=== PATIENT | female | born 1970 | race Caucasian/White ===

== ENCOUNTER → 2017-08-18 17:45 | Outpatient (CLI) | payer OTHER, SELFPAY ==
[2017-08-25 12:36] LABS: HPV APTIMA, High Risk Negative (Negative)
== END ==
PROVIDERS: Visit Provider Obstetrics & Gynecology
DX: Z12.4 Encounter for screening for malignant neoplasm of cervix (principal)
CPT/HCPCS: 88175; G0145

== ENCOUNTER → 2020-10-14 10:53 | Outpatient (CLI) | payer OTHER, SELFPAY ==
--- NOTE | 2020-10-14 | CER_PTH ---
PATIENT: EMILIANO DAVIS LOC: [facility]#:[id number] AGE/SX: 54/F ROOM: RE10/14/[address]: Dr. Mitali Moulton MD : 1970 BED: DIS: SPEC #: [id number] RECD: 10/14/20 16:41 STATUS: SHERICE BAILEY #: [id number] MYA: 10/14/20 00:[address]: Mitali Moulton DEPT: SURGICAL PATHOLOGY RECD BY: Lizbeth Grant ENTERED: 10/15/20 07:12 SP TYPE: CERV OTHR DR: Dr. Dante De La O MD Tissues: Uterine cervix, NOS Procedures: Surgery Specimen Level IV HEADER OPERATION: Cervical polyp PRE-OP DIAGNOSIS: Cervical polyp TISSUE SUBMITTED: Cervical polyp MICROSCOPIC DIAGNOSIS Cervical polyp, biopsy: Benign endocervical polyp and mucous. SJ:zeenat 10/16/2020 MICROSCOPIC DESCRIPTION Slides are reviewed. GROSS DESCRIPTION Received is one container labeled with the patient's name and not further designated. The specimen consists of a polypoid piece of rivera soft tissue measuring 0.5 x 0.4 x 0.1 cm. Also present in the container are multiple fragments of mucoid tissue that in aggregate measure 1.5 x 1.5 x 0.2 cm. The entire specimen is submitted in one cassette. / SJ:zeenat 10/15/20 TC:5 CPT: 84729
[2020-10-14 10:50] VITALS: BMI 26.8
[2020-10-14 11:54] LABS: Estradiol 18.7 pg/mL; Follicle Stimulating Hormone 66.3 mIU/mL
[2020-10-19 10:25] LABS: HPV APTIMA, High Risk Negative (Negative)
== END ==
PROVIDERS: PCP Family Medicine; Referring Provider Obstetrics & Gynecology; Visit Provider Obstetrics & Gynecology
DX: Z12.4 Encounter for screening for malignant neoplasm of cervix (principal); N84.1 Polyp of cervix uteri; N95.0 Postmenopausal bleeding
CPT/HCPCS: 36415; 82670; 83001; 87624; 88175; 88305; G0145

== ENCOUNTER → 2020-10-28 11:12 | Outpatient (CLI) | payer OTHER, SELFPAY ==
[2020-10-14 10:50] VITALS: BMI 26.8
--- NOTE | 2020-10-28 11:17 | US_ITS ---
STUDY: ULTRASOUND OF THE FEMALE PELVIS - COMPLETE REASON FOR EXAM: Female, 50 years old. Postmenopausal bleeding. LMP: The patient is postmenopausal. Recent polyp removal. TECHNIQUE: Transabdominal and Transvaginal TECHNICAL QUALITY: Adequate. COMPARISON: None. FINDINGS: The uterus is anteverted and is in a midline position. The uterus measures 5.1 cm x 3.7 cm x 2.5 cm. Normal uterine cervix. The endometrium measures 3.2 mm in thickness, and is fluid distended. There is a 2 mm x 2 mm x 3 mm small rounded nodule within the endometrium suggestive of a small polyp. There is no demonstrated myometrial mass. I.U.D. - The patient does not have an I.U.D. The right ovary is visualized. The right ovary measures 2.4 cm x 1.2 cm x 0.8 cm. There is no right ovarian cyst or ovarian mass. There is no visualized right adnexal mass or complex lesion. There is normal arterial and normal venous vascularity. The left ovary is visualized. The left ovary measures 1.7 cm x 1.2 cm x 0.9 cm. There is no left ovarian cyst or ovarian mass. There is no visualized left adnexal mass or complex lesion. There is normal arterial and normal venous vascularity. There is no fluid in the cul-de-sac. The pre void volume of the bladder was 260 ml. US/Transvaginal Non- IMPRESSION: Fluid filled endometrium containing a 2 mm x 3 mm x 2 mm polyp. Electronically Signed: Owen Almeida MD at 12:37 EDT , Service support ,
--- NOTE | 2020-10-28 11:17 | US_ITS ---
STUDY: ULTRASOUND OF THE FEMALE PELVIS - COMPLETE REASON FOR EXAM: Female, 50 years old. Postmenopausal bleeding. LMP: The patient is postmenopausal. Recent polyp removal. TECHNIQUE: Transabdominal and Transvaginal TECHNICAL QUALITY: Adequate. COMPARISON: None. FINDINGS: The uterus is anteverted and is in a midline position. The uterus measures 5.1 cm x 3.7 cm x 2.5 cm. Normal uterine cervix. The endometrium measures 3.2 mm in thickness, and is fluid distended. There is a 2 mm x 2 mm x 3 mm small rounded nodule within the endometrium suggestive of a small polyp. There is no demonstrated myometrial mass. I.U.D. - The patient does not have an I.U.D. The right ovary is visualized. The right ovary measures 2.4 cm x 1.2 cm x 0.8 cm. There is no right ovarian cyst or ovarian mass. There is no visualized right adnexal mass or complex lesion. There is normal arterial and normal venous vascularity. The left ovary is visualized. The left ovary measures 1.7 cm x 1.2 cm x 0.9 cm. There is no left ovarian cyst or ovarian mass. There is no visualized left adnexal mass or complex lesion. There is normal arterial and normal venous vascularity. There is no fluid in the cul-de-sac. The pre void volume of the bladder was 260 ml. US/Pelvic (Non ) IMPRESSION: Fluid filled endometrium containing a 2 mm x 3 mm x 2 mm polyp. Electronically Signed: Owen Almeida MD at 12:37 EDT , Service support ,
== END ==
PROVIDERS: PCP Family Medicine; Referring Provider Obstetrics & Gynecology; Visit Provider Obstetrics & Gynecology
DX: N95.0 Postmenopausal bleeding (principal)
CPT/HCPCS: 76830; 76856

== ENCOUNTER 2020-11-11 09:00 | Day surgery (SDC) | payer OTHER, SELFPAY ==
[2020-10-14 10:50] VITALS: BMI 26.8
[2020-11-06 11:19] LABS: Hematocrit 38.7 % (37-47); Hemoglobin 12.5 g/dL (12.0-15.0); Mean Corp Hgb Conc 32.3 g/dL (32-36); Mean Corpuscular Hgb 30.7 pg (27.0-32.0); Mean Corpuscular Volume 95.1 fL (81-99); Platelet Count 214 K/mm3 (150-450); RBC Distribution Width CV 13.5 % (11.6-14.6); RBC Distribution Width SD 47.6 fl (35.1-43.9); Red Blood Count 4.07 M/mm3 (4.2-5.4); White Blood Count 3.3 K/mm3 (4.4-11.0)
[2020-11-06 11:38] VITALS: BMI 27.1
--- NOTE | 2020-11-11 09:02 | PCM.HP.BLA ---
History and Physical Date of Admission: 11/11/20 Intake Visit Reasons: EMB per SM Chief Complaint: EMB Director Of Customer Acquisition Required: No Is patient in pain?: No Allergies metoclopramide [From Reglan] Allergy (Mild, Verified 10/31/20 08:44) hyper codeine Allergy (Verified 10/31/20 08:44) Hives lisinopril Adverse Reaction (Unknown, Verified 10/31/20 08:44) Cough lovastatin Adverse Reaction (Unknown, Verified 10/31/20 08:44) Unknown Medications aspirin 81 mg PO DAILY 06/18/14 [History Confirmed 10/31/20] [id number]-[id number] 2 ea PO DAILY 06/18/14 [History Confirmed 10/31/20] multivitamin with folic acid 1 tab PO DAILY 06/18/14 [History Confirmed 10/31/20] omega-3 fatty acids-fish oil 3 ea PO DAILY 06/18/14 [History Confirmed 10/31/20] alprazolam 2 mg tablet 2 mg PO ONCE 08/18/17 [History Confirmed 10/31/20] atorvastatin 80 mg tablet 80 mg PO QDAY 08/18/17 [History Confirmed 10/31/20] calcium carbonate 500 mg calcium (1,250 mg) tablet 500 mg PO BID tab 08/18/17 [History Confirmed 10/31/20] losartan 50 mg tablet 50 mg PO QDAY 08/18/17 [History Confirmed 10/31/20] ferrous sulfate 325 mg (65 mg iron) tablet 325 mg PO DAILY 10/02/19 [History Confirmed 10/31/20] omeprazole 20 mg capsule,delayed release 20 mg PO DAILY 10/02/19 [History Confirmed 10/31/20] trazodone 100 mg tablet 50 mg PO QHS PRN #30 tab 10/14/20 [Rx Confirmed 10/31/20] venlafaxine 150 mg capsule,extended release 24 hr 150 mg PO DAILY #90 cap 10/14/20 [Rx Confirmed 10/31/20] Is last menstrual period known: No Post menopausal: No Patient : No : No PFSH Medical History Anxiety Atherosclerotic heart disease of jena coronary artery without angina pectoris Breast cancer Breast cancer, right Essential hypertension GERD (gastroesophageal reflux disease) Heart disease Hyperlipidemia Hypertension PMB (postmenopausal bleeding) Presence of stent in coronary artery (~09/21/13) Pure hypercholesterolemia Surgical History H/O lumpectomy History of endometrial ablation History of partial mastectomy of right breast Presence of coronary angioplasty implant and graft (~09/21/13) Family History Mother Heart disease Hypertension CVA (cerebral vascular accident) Parkinsons Seizures Father COPD (chronic obstructive pulmonary disease) Hypertension Social History Smoking Status: Never smoker alcohol intake: never substance use type: does not use caffeine: Yes what type of physical activity do you participate in: walking frequency: 5-6 times per week seatbelt use: always do you feel safe at home: Yes additional social history: - [employer] HPI EMB per Details: EMILIANO DAVIS is a 50 year old who presents for preop appointment for endometrial polyp, plan d and c hysteroscopy symphion. Female Reproductive History Menopausal Symptoms: No hot flashes, No night sweats, No difficulty concentrating and No change in libido Pregancy History 2 Elective abortions Hx Para 2 Spontaneous abortions Hx # Term Pregnancies Ectopic pregnancies Hx # Pregnancies Multiple births # of living children Past Pregnancies Del. Date Name GA/Weeks Outcome Route Bth Weight Gen Labor Lgth Anesthesia Del Locatn Provider FOB Unknown 1995 Anshu Unknown 1998 Dragan Mantilla Constitutional: Reports as per HPI; Denies fatigue, increased appetite, poor appetite, night sweats, weight gain or weight loss ENT ENT: Reports system reviewed and no additional complaints, except as documented Cardio Card: Denies chest pain Resp Resp: Denies cough or dyspnea GI GI: Reports as per HPI; Denies abdominal pain, bloating, constipation, nausea or vomiting : Reports as per HPI and other; Denies difficulty voiding, dysuria, hematuria, hot flashes, nipple discharge, pelvic pain, prolapse symptoms, urinary frequency, urinary incontinence, urinary urgency, vaginal discharge, vaginal dryness, vaginal odor or vaginal pruritus Musc Musc: Denies arthralgias, back pain or muscle weakness Skin Skin/Breast: Denies changing lesions, breast mass, breast pain, breast skin changes or nipple discharge Neuro Neuro: Reports system reviewed and no additional complaints, except as documented Psych Psych: Denies anxiety, change in libido, depression or difficulty concentrating Endo Endo: Denies cold intolerance, excessive sweating, heat intolerance or polydipsia Amilcar/Lymph Hematologic/Lymphatic: Denies easy bleeding, Denies easy bruising and Denies lymphadenopathy Exam Const General: cooperative, healthy appearing, comfortable, no acute distress and well developed Orientation: alert [facility] Head: normal to inspection and normocephalic Ears: hearing grossly normal bilaterally and external ears normal Nose: external nose normal and nares normal Face and sinus: normal facial exam Neck Neck: normal visual inspection and no lymphadenopathy Thyroid: thyroid normal Chest Chest palpation & inspection: normal inspection of the chest Resp Effort & Inspection: normal respiratory effort Auscultation: clear to auscultation bilaterally Cardio Rate: regular rate Rhythm: regular rhythm Heart Sounds: S1 normal and S2 normal GI Inspection: normal to inspection and non-distended Palpation: soft and no hepatosplenomegaly General: bladder normal to palpation External Female Exam: normal external appearance and normal appearance of the urethra Urethra: normal appearance of the urethra, normal palpation and no discharge Speculum Exam - Vagina: normal appearance of the vagina and normal vaginal discharge Speculum Exam - Cervix: normal appearance of the cervix and nontender Bimanual Exam- Vagina & Uterus: normal bimanual exam, uterine size normal, bladder normal to palpation, uterine shape normal, No tender, uterine mobility normal, consistency normal, normal palpation and non-tender Bimanual Exam- Adnexa, other: normal adnexae, adnexae mobile, no masses and normal Pelvic Support: normal Musc Other: gross motor intact no deficits, full bilateral strength Skin General: no rashes or lesions noted Neuro General: patient alert, patient awake, moves all extremities and no focal motor deficits Motor: muscle tone normal throughout Extrem General: normal to inspection and no pedal edema Psych Appearance: grossly normal Mental Status: mental status grossly normal Affect: normal affect Speech and Movement: speech and movement normal Office Procedures Endometrial Biopsy Endometrial Biopsy Details: Cervix prepped with betadine and pipelle inserted into uterus without complication. Specimen obtained and sent to lab for analysis. All instruments removed from vagina without complications. Excellent hemostasis noted. Coding Level of Care Code No Charge Diagnoses Postmenopausal bleeding N95.0 Assessment and Plan Assessment and Plan (1) Postmenopausal bleeding: Status: Acute Comment: endometrial polyp, plan d and c hysteroscopy symphion resection Plan - Dr. Mitali Moulton MD: After discussing the patient's diagnosis and treatment plan options, patient wishes to proceed with surgical management. I have discussed with the patient the risks, benefits, and alternatives of the procedure which include but are not limited to risks of anesthesia, bleeding, infection, possible damage to bowel, bladder, or surrounding vasculature which could lead to additional surgery to evaluate any complications. Patient agrees to procedure and wishes to proceed. ACOG/uptodate references given for additional information regarding procedure. UPDATE- I have seen the patient and performed any clinically relevant updates to the history and physical exam. Mitali Moulton MD
[2020-11-11 09:43] VITALS: BP 120/67; PULSE 65; RESP 16; TEMP 36.5; O2SAT 100; BMI 27.8
[2020-11-11] MEDS: Lactated Ringers 1,000 ML 100 ML IV (09:48)
--- NOTE | 2020-11-11 10:50 | EMB_PTH ---
PATIENT: EMILIANO DAVIS [place] [facility] [id number] AGE/SX: 50/F ROOM: RE11/11/[address]: Dr. Mitali Moulton MD : 1970 BED: DIS: 11/11/2020 SPEC #: [id number] RECD: 11/11/20 14:04 STATUS: SHERICE BAILEY #: [id number] MYA: 11/11/20 10:[address]: Mitali Moulton DEPT: SURGICAL PATHOLOGY RECD BY: Lizbeth Grant ENTERED: 11/12/20 09:32 SP TYPE: ENDOM BX/C LILLIAN DR: Dr. Dante De La O MD Tissues: Endometrium, NOS Procedures: Surgery Specimen Level IV HEADER OPERATION: Hysteroscopy, D & C Symphion PRE-OP DIAGNOSIS: Postmenopausal bleeding TISSUE SUBMITTED: Endometrial curettings MICROSCOPIC DIAGNOSIS Endometrium, curettings: Scant benign glandular epithelial cells and rare benign squamous epithelium. Fragment of benign fibrous tissue. See comment. AM:zeenat 11/13/2020 COMMENT The specimen primarily consists of blood and proteinaceous material. Clinical correlation is suggested. MICROSCOPIC DESCRIPTION Slides are reviewed. GROSS DESCRIPTION Received in fixative is one container labeled with the patient's name and designated endometrial curettings. The specimen consists of multiple fragments of hemorrhagic soft tissue mixed with mucoid tissue that in aggregate measure 2.5 x 1.5 x 0.2 cm. The specimen is totally submitted in one cassette. / SJ:zeenat 11/12/20 TC:5 CPT: 83060
--- NOTE | 2020-11-11 11:20 | OP.PCM_ITS ---
Problems Associated Problem List Diagnoses (1) Postmenopausal bleeding: Report of Operation Date of Procedure: 11/11/20 Pre-Operative Diagnosis: see problem list Post-Operative Diagnosis: same Surgery/Procedure Performed:: D&C hysteroscopy using symphion customer success associate: None Type of Anesthesia: Local MAC Special Medications: none Specimen's removed: EMC Drains: none Estimated Blood Loss (mL): 25 Fluids Replaced: crystalloid Description of Procedure: Patient was prepped and draped in a normal sterile fashion under MAC anesthesia. A weighted speculum was placed in the vagina and the anterior lip of the cervix was grasped with a single-tooth tenaculum. A paracervical block was placed with 1% lidocaine. Cervical stenosis was encountered and it was difficult to ascertain a clear tract. Ultrasound was used to perform ultrasound-guided entry which confirmed being inside the lining of the uterus. Cervix was progressively dilated to allow passage of a 5 mm hysteroscope. . Uterine sounded to 5 cm. Uterine lining was noted to be significantly atrophic and a very narrow cavity. Sharp curettage was performed all instruments were removed from the vagina and excellent hemostasis was noted. Patient was awoken and taken to recovery in stable condition. Grafts/Implants Used: none Complications none Admit VTE Documentation VTE Present on Admission: No VTE Mechan Device Prophylaxis: SCD's Multi Select Codes Urinary/Genital Urinary/Genital CPT Codes: 01281 [place] [address] Hysteroscopy, diagnostic
--- NOTE | 2020-11-11 11:20 | EX.PCM.DISCH ---
Discharge Instructions Procedure D&C Diet Discharge Diet: No restrictions Activity Discharge Activity: Return to Normal Activity, May Shower and May Take a Tub Bath (after 1 week) May resume sexual activity in: 1-2 weeks Weight Bearing Status: Weight bearing as tolerated Lifting Restrictions: none Dressing / Incision Call your doctor if you observe: Fever of 101 or Higher, Using more than 1 pad per hour, Shortness of breath and Uncontrolled pain Follow Up Care Please Follow Up With: Mitali Moulton MD When: Call [phone] to schedule appointment. Test Results: Test results from this visit will be discussed in further detail at your follow-up appointment, if applicable. Discharge Plan Admission Primary Reason for Your Visit: hysteroscopy Attending Provider: Mitali Moulton Primary Care Provider: Dante De La O Discharge Orders/Prescriptions Prescriptions: No Action atorvastatin [Lipitor] 80 mg tablet 80 mg PO QDAY RF: 0 losartan 50 mg tablet 50 mg PO QDAY RF: 0 calcium carbonate [Calcium 500] 500 mg calcium (1,250 mg) tablet 500 mg PO BID RF: 0 alprazolam [Xanax] 2 mg tablet 2 mg PO DAILY PRN PRN (Reason: Anxiety) RF: 0 omeprazole 20 mg capsule,delayed release(DR/EC) 20 mg PO QHS RF: 0 ferrous sulfate 325 mg (65 mg iron) tablet 325 mg PO DAILY RF: 0 glucosamine-chondroitin [Osteo Bi-Flex] 250-200 mg tablet 2 tab PO DAILY RF: 0 nitroglycerin 0.4 mg tablet, sublingual 0.4 mg sublingual Q5-15M PRN (Reason: Chest Pain) RF: 0 aspirin 81 MG tablet,chewable 81 mg PO DAILY RF: 0 omega-3 fatty acids-fish oil 1 EACH capsule 3 ea PO DAILY RF: 0 multivitamin with folic acid 1 TABLET tablet 1 tab PO DAILY RF: 0 venlafaxine 150 mg capsule,extended release 24hr 150 mg PO DAILY RF: 0 trazodone 100 mg tablet 50 mg PO QHS PRN PRN (Reason: insomnia) RF: 0 Referrals / Follow Up: Dante De La O MD [Primary Care Provider] - Disposition Disposition (needs filled in before D/C Order can be placed): Home, Self Care
[2020-11-11] MEDS: Lidocaine 1% (20 ml mdv) 20 ML Vial (12:11)
[2020-11-11 12:54] VITALS: BP 120/67; BP 153/81; PULSE 73; RESP 16; TEMP 35.7; O2SAT 100
[2020-11-11 12:55] VITALS: BP 120/67; BP 153/81; PULSE 70; RESP 16; O2SAT 100
[2020-11-11 13:05] VITALS: BP 120/67; BP 142/82; PULSE 64; RESP 16; TEMP 35.7; O2SAT 100
[2020-11-11 13:44] VITALS: BP 120/67; BP 137/76; PULSE 70; RESP 16; TEMP 36.4; O2SAT 100
== END 2020-11-11 13:46 ==
LOC: SDC 09:01 → AC 09:01
PROVIDERS: PCP Family Medicine; Referring Provider Obstetrics & Gynecology; Visit Provider Obstetrics & Gynecology
PROC: 0UB98ZZ Excision of Uterus, Via Natural or Artificial Opening Endoscopic (ICD-10-PCS; CPT 58558; principal; 2020-11-11 10:35)
DX: N84.0 Polyp of corpus uteri (principal); N95.0 Postmenopausal bleeding; N88.2 Stricture and stenosis of cervix uteri; I25.10 Atherosclerotic heart disease of native coronary artery without angina pectoris; I10 Essential (primary) hypertension; E78.5 Hyperlipidemia, unspecified; K21.9 Gastro-esophageal reflux disease without esophagitis; F32.9 Major depressive disorder, single episode, unspecified; Z79.82 Long term (current) use of aspirin; Z79.899 Other long term (current) drug therapy; Z85.3 Personal history of malignant neoplasm of breast; Z92.3 Personal history of irradiation; Z95.5 Presence of coronary angioplasty implant and graft
CPT/HCPCS: 00952; 58558; 36415; 85027; 86850; 86900; 86901; 88305; J7120; J2405

== ENCOUNTER → 2020-11-20 06:42 | Outpatient (CLI) | payer OTHER, SELFPAY ==
[2020-11-11 09:43] VITALS: BMI 27.8
--- NOTE | 2020-11-20 06:44 | ECHOD_ITS ---
Reason For Study: CAD/ASHD Procedure This was a 2D Doppler, Color Flow transthoracic echocardiogram. Myocardial strain analysis was performed in this exam to aid in the assessment of cardiac function. The exam was of adequate technical quality. Exam performed in department. Left Ventricle Normal LV size. Left ventricular systolic function is normal. The estimated ejection fraction is 60 %. The global longitudinal strain = -20 % (normal). No evidence for diastolic dysfunction. No regional wall motion abnormalities noted. Right Ventricle Normal RV size. Normal systolic function. Atria Normal left atrium. Normal right atrium. No doppler evidence for ASD. Mitral Valve There is no mitral annular calcification. Normal mitral valve. Mild mitral valve prolapse. Trivial mitral valve insufficiency. Tricuspid Valve Normal tricuspid valve. Trivial tricuspid valve insufficiency. Unable to estimate RV systolic pressure due to insufficient tricuspid regurgitant envelope. Aortic Valve Trisinus/trileaflet aortic valve. Mild focal aortic valve calcification. Pulmonic Valve The pulmonic valve is not well visualized. Great Vessels Normal sized aortic root. Pericardium/Pleural No pericardial effusion. MMode/2D Measurements & Calculations LVIDd: 4.9 cm IVSd: 0.79 cm Ao root diam: 3.0 cm LVIDs: 3.3 cm LVPWd: 0.82 cm RVDd: 2.9 cm FS: 31.3 % LAV(MOD-bp): 36.8 ml LVAd ap4: 30.0 cm2 SV(MOD-sp4): 54.4 ml LAV(MOD-bp) Indexed: 19.1 ml/m2 LVLd ap4: 8.1 cm LAV(MOD-sp2): 36.1 ml EDV(MOD-sp4): 91.0 ml LAV(MOD-sp4): 33.1 ml EDV(sp4-el): 93.8 ml LVAs ap4: 16.3 cm2 LVLs ap4: 6.2 cm ESV(MOD-sp4): 36.6 ml ESV(sp4-el): 36.0 ml EF(MOD-sp4): 59.7 % EF(sp4-el): 61.6 % SV(sp4-el): 57.8 ml LA A4 area: 14.7 cm2 LA dimension(2D): 3.1 cm RA A4 area: 11.9 cm2 Time Measurements MV dec time: 0.24 sec Doppler Measurements & Calculations MV E max daren: 81.1 cm/sec Lat Peak E' Daren: 13.9 cm/sec Med Peak E' Daren: 12.4 cm/sec MV A max daren: 81.1 cm/sec E/E' lat: 5.8 E/E' med: 6.5 MV E/A: 1.0 Ao V2 max: 128.7 cm/sec LV V1 max: 77.6 cm/sec PA V2 max: 115.8 cm/sec Ao max P.6 mmHg LV V1 max P.4 mmHg ECHO/Echo Complete Interpretation Summary Left ventricular systolic function is normal. The estimated ejection fraction is 60 %. The global longitudinal strain = -20 % (normal). Mild mitral valve prolapse. Trivial mitral valve insufficiency. Trivial tricuspid valve insufficiency. Mild focal aortic valve calcification. Unable to estimate RV systolic pressure due to insufficient tricuspid regurgita nt envelope. No evidence for diastolic dysfunction. Ordering Physician: Krzysztof Henley Referring Physician: HEMANT LLOYD Performed By: Sobeida Whitehead RDCS
--- NOTE | 2020-11-20 08:55 | STRESSREP ---
Stress Test Report Date: 11-20-2020 Procedure: Exercise tolerance test/imaging study Indications: Chest pain; CAD; status post PTCA/stent Consent: Per the patient Procedure: The patient exercised on a Checo protocol for 10 minutes completing Stage III and 1 minute of Stage IV achieving a peak heart rate of 150 bpm (89% predicted maximal heart rate) with a peak blood pressure 150/76 mmHg and a peak MET capacity of 11 METs. The baseline ECG demonstrated normal sinus rhythm. The peak exercise ECG demonstrated somatic/motion artifact with approximately 1 to [address] segment depression in leads II, III, aVF, and V3 through V6 with gradual resolution towards baseline in recovery. There were occasional PVCs during exercise and recovery and occasional ventricular couplets during exercise. The functional capacity was considered good. There was notation of mild to moderate chest discomfort/tightness during exercise with spontaneous resolution in recovery. The examination was discontinued secondary to chest discomfort. Impression: 1. Technically adequate (percent predicted maximal heart rate greater than 85%) exercise tolerance test 2. Peak exercise ECG with somatic/motion artifact with approximately 1 to [address] segment depression in leads II, III, aVF, and V3 through V6 with gradual resolution towards baseline in recovery 3. There were occasional PVCs during exercise and recovery and occasional ventricular couplets during exercise 4. Nuclear images pending Myocardial perfusion imaging study: Technique: The patient was injected with 12.0 mCi of technetium 99m Cardiolite and subsequently rest SPECT Cardiolite nuclear imaging was obtained in the horizontal long, vertical long, and short axis views. The patient exercised on a Checo protocol for 10 minutes completing Stage III and 1 minute of Stage IV achieving a peak heart rate of 150 bpm (89% predicted maximal heart rate) with a peak blood pressure 150/76 mmHg and a peak MET capacity of 11 METs. The patient was injected with 36.0 mCi of technetium 99m Cardiolite and subsequently stress SPECT Cardiolite nuclear imaging was obtained in the horizontal long, vertical long, and short axis views. A gated Cardiolite study at peak stress was obtained. Interpretation: Rest and stress SPECT Cardiolite nuclear imaging status post realignment, normalization, and attenuation correction, demonstrates the appearance of relative uniform tracer uptake and myocardial perfusion appearing within normal limits. There is end systolic thickening and brightening. The gated Cardiolite study demonstrates myocardial thickening and inward wall motion. The reported LVEF is 69%. Impression: 1. Rest and stress SPECT Cardiolite nuclear imaging demonstrate relative uniform tracer uptake and myocardial perfusion appearing within normal limits. 2. The gated Cardiolite study reports an LVEF of 69%. This note was generated with [email or web address] software. It may contain incorrect words, spelling, and punctuation that were not noted in checking the note before signing.
== END ==
PROVIDERS: PCP Family Medicine; Referring Provider Internal Medicine Cardiovascular Disease; Visit Provider Internal Medicine Cardiovascular Disease
DX: R07.89 Other chest pain (principal); I25.10 Atherosclerotic heart disease of native coronary artery without angina pectoris; I10 Essential (primary) hypertension; E78.00 Pure hypercholesterolemia, unspecified; Z95.5 Presence of coronary angioplasty implant and graft
CPT/HCPCS: 78452; 93017; 93306; A9500; A4216

== ENCOUNTER 2021-05-19 08:26 | Day surgery (SDC) | payer OTHER, SELFPAY ==
--- NOTE | 2021-05-13 13:56 | RAD_ITS ---
STUDY: X-RAY CHEST REASON FOR EXAM: Female, 50 years old. Technologist Notes PRE HEART CATH. CHRONIC CHEST TIGHTNESS, HX OF STENT X7 YRS AND BREAST CA X 2 YRS Cardiac Catheterization TECHNIQUE: XR Chest 2 Views COMPARISON: None FINDINGS: There is no demonstrated pleural abnormality. Normal size heart. Normal mediastinum and leny. Normal visualized pulmonary arteries. Normal visualized aortic arch and descending thoracic aorta. Normal visualized thoracic spine. Normal visualized ribs, clavicles, and shoulders. There is no demonstrated abnormality of the visualized soft tissue structures of the upper abdomen. RAD/Chest PA and Lateral IMPRESSION: There are no acute findings. Electronically Signed: Humberto Heath MD at 19:46 EST , Service support ,
[2021-05-13 14:11] LABS: Absolute Lymphocyte Count 1.23 X10^3/uL (0.83-4.51); Absolute Neutrophil Count 2.4 X10^3/uL (2.0-7.7); Basophil# 0.04 X10^3/uL; Basophil% 0.9 % (0-1); Eosinophil# 0.24 X10^3/uL; Eosinophils% 5.6 % (0-5); Hematocrit 37.6 % (37-47); Hemoglobin 12.7 g/dL (12.0-15.0); Lymphocyte # 1.23 X10^3/ul (0.83-4.51); Lymphocyte % 28.5 % (19-41); Mean Corp Hgb Conc 33.8 g/dL (32-36); Mean Corpuscular Hgb 31.6 pg (27.0-32.0); Mean Corpuscular Volume 93.5 fL (81-99); Mean Platelet Vol. 10.1 fl (6.2-12.0); Monocyte% 9.3 % (0-10); NRBC Flagged by Analyzer 0 % (0-5); Neutrophil # 2.41 X10^3/uL (2.7-7.7); Neutrophil % 55.7 % (47-70); Platelet Count 209 K/mm3 (150-450); RBC Distribution Width CV 13.1 % (11.6-14.6); RBC Distribution Width SD 45.1 fl (35.1-43.9); Red Blood Count 4.02 M/mm3 (4.2-5.4); White Blood Count 4.3 K/mm3 (4.4-11.0)
[2021-05-13 14:19] LABS: Partial Thromboplast Time 35.6 Seconds (24.1-36.2)
[2021-05-13 14:23] LABS: Prothrombin Time (Protime)PT. 12.5 SECONDS (11.7-14.9)
[2021-05-13 14:40] LABS: Anion Gap 3 (5-15); BUN 15 mg/dL (7-18); BUN/Creat Ratio 16.5 RATIO (10-20); Calcium,Total 8.9 mg/dL (8.5-10.1); Chloride 106 mmol/L (98-107); Creatinine, Serum 0.91 mg/dL (0.55-1.02); EST Glomerular Filtration Rate 69 mL/min (>60); Est Glom Filt Rate - Afr Amer 84 mL/min (>60); Glucose 96 mg/dL (74-106); Potassium 3.9 mmol/L (3.5-5.1); Sodium Level 139 mmol/L (136-145)
[2021-05-18 07:16] VITALS: BMI 28.3
--- NOTE | 2021-05-18 18:43 | HP.PCM_ITS ---
History and Physical Date of Admission: 05/19/21 [facility] [id number] [place], [place] [phone] OFFICE VISITDate of Service: 05/13/21 MR#:[id number]: EMILIANO DAVIS #:[id number]:[id number] Provider: LUCINA Mills/Sex: 50/F [facility] HPI HPI History of Present Illness Surgical H&P: Yes Details: This is a 50-year-old white female who presents today for outpatient cardiovascular consultation with a history of underlying CAD status post LCx PTCA/stent (2013), superimposed upon hyperlipidemia, hypertension, and a history of right breast carcinoma. The patient underwent evaluation at [facility] in [place], [place] in 2013 with a diagnostic cardiac catheterization. At that time her left ventricle was thought to be normal with an LVEF of 55 to 60%, the left main had no evidence of disease, the LAD had minor luminal irregularities, the intermediate ramus had no evidence of disease, the LCx had a 95% stenosis with an associated thrombus for which she underwent PTCA/stent with a 3 mm x 16 mm Promus Premier drug-eluting stent, and the RCA had a 40% stenosis. She states she is has been having burning and tightness in the middle of her shoulder blades and chest-similar to what she had prior to her stent in 2013. She states that she will also walk up the stairs, goes to sit down and she breaks out in a sweat and is nauseated. This has been ongoing for the last 2-3 months. She states that she has not used nitroglycerin for the pain due to the severe headache she had the first time she took it. She states that she does get slightly winded with activity. She was unable to shovel snow a few days ago d/t chest pain and SOB. She states that she does have an occasional lightheadedness- she attributes this to her anemia. The Imdur did help somewhat since she started it but she still does have CP. She states she has been taking an Iron pill and it has gotten better. She denies dizziness, syncopal or near syncopal episodes, and headaches. Intake Vital Signs 05/13/21 14:15 Height 5 ft 7 in Weight: 181 lb BMI 28.3 BP 121/70 H Blood Pressure Location Lt brachial Position Sitting Respiration 18 Pulse 69 Pulse Source Monitor Pulse Oximetry (%) 99 Intake Visit Reasons: 6 M FU Super[employer] Required: No Is patient in pain?: No Allergies metoclopramide [From Reglan] Allergy (Mild, Verified 05/13/21 14:15) hyper codeine Allergy (Verified 05/13/21 14:15) Hives lisinopril Adverse Reaction (Unknown, Verified 05/13/21 14:15) Cough lovastatin Adverse Reaction (Unknown, Verified 05/13/21 14:15) Unknown Medications aspirin 81 mg PO DAILY 06/18/14 [History Confirmed 05/13/21] multivitamin with folic acid 1 tab PO DAILY 06/18/14 [History Confirmed 05/13/21] omega-3 fatty acids-fish oil 3 ea PO DAILY 06/18/14 [History Confirmed 05/13/21] alprazolam 2 mg tablet 2 mg PO DAILY PRN PRN 08/18/17 [History Confirmed 05/13/21] atorvastatin 80 mg tablet 80 mg PO QDAY 08/18/17 [History Confirmed 05/13/21] calcium carbonate 500 mg calcium (1,250 mg) tablet 500 mg PO BID tab 08/18/17 [History Confirmed 05/13/21] losartan 50 mg tablet 50 mg PO QDAY 08/18/17 [History Confirmed 05/13/21] ferrous sulfate 325 mg (65 mg iron) tablet 325 mg PO DAILY 10/02/19 [History Confirmed 05/13/21] trazodone 50 mg PO QHS PRN PRN 11/04/20 [History Confirmed 05/13/21] glucosamine-chondroitin 250 mg-200 mg tablet 2 tab PO DAILY tab 11/06/20 [History Confirmed 05/13/21] nitroglycerin 0.4 mg sublingual tablet 0.4 mg SUBLINGUAL Q5-15M PRN 11/06/20 [History Confirmed 05/13/21] clopidogrel 75 mg tablet 75 mg PO DAILY #7 tab 04/16/21 [Rx Confirmed 05/13/21] isosorbide mononitrate 30 mg tablet,extended release 24 hr 30 mg PO DAILY #30 tab 04/16/21 [Rx Confirmed 05/13/21] metoprolol tartrate 25 mg tablet 25 mg PO BID #60 tab 04/16/21 [Rx Confirmed 05/13/21] omeprazole magnesium 20 mg tablet,delayed release 20 mg PO DAILY 04/16/21 [History Confirmed 05/13/21] venlafaxine 75 mg capsule,extended release 24 hr 37.5 mg PO DAILY cap 04/16/21 [History Confirmed 05/13/21] PFSH Medical History Anemia Anxiety Atherosclerotic heart disease of [place] coronary artery without angina pectoris Breast cancer Breast cancer, right Cardiology follow-up encounter Easy bruising Essential hypertension Excessive bleeding Gastric reflux GERD (gastroesophageal reflux disease) Heart disease High cholesterol History of angina History of trigger finger Hyperlipidemia Hypertension Loose, teeth Non-smoker PMB (postmenopausal bleeding) Post-menopausal Presence of stent in coronary artery (~09/21/13) Pure hypercholesterolemia Wears contact lenses Surgical History H/O dilation and curettage H/O lumpectomy History of endometrial ablation History of partial mastectomy of right breast Presence of coronary angioplasty implant and graft (~09/21/13) Family History Mother Heart disease Hypertension CVA (cerebral vascular accident) Parkinsons Seizures Father COPD (chronic obstructive pulmonary disease) Hypertension Social History Smoking Status: Never smoker alcohol intake: never substance use type: does not use caffeine: Yes what type of physical activity do you participate in: walking frequency: 5-6 times per week seatbelt use: always do you feel safe at home: Yes additional social history: - [employer] ROS Const Const: Negative for fatigue, weakness, fever(s), headache(s), chills, frequent falls, weight gain or weight loss Eyes Eyes: Negative for blind spots, loss of peripheral vision, transient loss of vision, blurry vision, change in vision, double vision, floaters or tunnel vision ENT ENT: Negative for headache(s), dizziness, Nosebleed/epistaxis, balance problems or neck pain Cardio Chest Pain: Yes (tightness and burning) Frequency: other Character: tightness and other (burning, sweating, and nausea) Onset: exercise Location: mid sternal and other (Between Shouler blades) Exacerbation: exercise Relieving: rest Recurrence: exercise Palpitations: No Edema: None Muscle aches with walking: None Resp Respiratory: Positive for SOB with activity (slightly winded); Negative for SOB at rest or SOB orthopnea\SOB lying down GI GI: Negative nausea, vomiting, heartburn, bloating, vomiting blood/hematemesis, bright, red blood in stools or black,tarry stools Musc Musc: Negative for muscle aches/ myalgia, muscle weakness, joint pain or balance problems Neuro Neuro: Positive for lightheadedness (better with iron supplement); Negative for dizziness, near syncope, syncope, orthostatic symptoms, frequent falls, headache(s), weakness, blurry vision or double vision Amilcar Hematologic/Lymphatic: Negative for easy bleeding or easy bruising Endo Endo: Negative for fatigue Cardiology Exam Const Appearance: cooperative and no acute distress Orientation: alert and oriented x3 Head Head: normal to inspection Ears: hearing grossly normal bilaterally Nose: external nose normal Face and Sinus: face symmetric Eyes General: appearance normal, both eyes and all related structures Eyelids: eyelids normal Conjunctivae: conjunctivae normal Pupils: PERRL and pupil size EOM: EOM intact bilaterally Neck Neck: normal visual inspection Carotids: Negative bruit Chest Chest inspection: normal inspection of the chest and normal respiratory effort Auscultation: Bilateral: Clear to Auscultation Cardio Palpation: normal PMI Rate: regular rate Rhythm: regular rhythm Heart sounds: S1 normal and S2 normal; Negative rub, gallop or murmur GI GI: normal to inspection and soft; Negative no hepatosplenomegaly Neuro General: patient alert, patient oriented x3 and CN's II-XI intact bilaterally Skin Skin: no rashes or lesions noted Extremities Pulses: Normal: Right Posterior Tibial Pulse, Left Posterior Tibial Pulse, Right Radial Pulse and Left Radial Pulse Lower Extremity Edema: None: Bilateral Psych Psychological: normal affect Supplemental Info Supplemental Information Echocardiogram 11/20/2020: Interpretation Summary Left ventricular systolic function is normal. The estimated ejection fraction is 60 %. The global longitudinal strain = -20 % (normal). Mild mitral valve prolapse. Trivial mitral valve insufficiency. Trivial tricuspid valve insufficiency. Mild focal aortic valve calcification. Unable to estimate RV systolic pressure due to insufficient tricuspid regurgitant envelope. No evidence for diastolic dysfunction. Stress test 11/20/2020: Procedure: Exercise tolerance test/imaging study Indications: Chest pain; CAD; status post PTCA/stent Consent: Per the patient Procedure: The patient exercised on a Checo protocol for 10 minutes completing Stage III and 1 minute of Stage IV achieving a peak heart rate of 150 bpm (89% predicted maximal heart rate) with a peak blood pressure 150/76 mmHg and a peak MET capacity of 11 METs. The baseline ECG demonstrated normal sinus rhythm. The peak exercise ECG demonstrated somatic/motion artifact with approximately 1 to [address] segment depression in leads II, III, aVF, and V3 through V6 with gradual resolution towards baseline in recovery. There were occasional PVCs during exercise and recovery and occasional ventricular couplets during exercise. The functional capacity was considered good. There was notation of mild to moderate chest discomfort/tightness during exercise with spontaneous resolution in recovery. The examination was discontinued secondary to chest discomfort. Impression: 1. Technically adequate (percent predicted maximal heart rate greater than 85%) exercise tolerance test 2. Peak exercise ECG with somatic/motion artifact with approximately 1 to [address] segment depression in leads II, III, aVF, and V3 through V6 with gradual resolution towards baseline in recovery 3. There were occasional PVCs during exercise and recovery and occasional ventricular couplets during exercise 4. Nuclear images pending Myocardial perfusion imaging study: Technique: The patient was injected with 12.0 mCi of technetium 99m Cardiolite and subsequently rest SPECT Cardiolite nuclear imaging was obtained in the horizontal long, vertical long, and short axis views. The patient exercised on a Checo protocol for 10 minutes completing Stage III and 1 minute of Stage IV achieving a peak heart rate of 150 bpm (89% predicted maximal heart rate) with a peak blood pressure 150/76 mmHg and a peak MET capacity of 11 METs. The patient was injected with 36.0 mCi of technetium 99m Cardiolite and subsequently stress SPECT Cardiolite nuclear imaging was obtained in the horizontal long, vertical long, and short axis views. A gated Cardiolite study at peak stress was obtained. Interpretation: Rest and stress SPECT Cardiolite nuclear imaging status post realignment, normalization, and attenuation correction, demonstrates the appearance of relative uniform tracer uptake and myocardial perfusion appearing within normal limits. There is end systolic thickening and brightening. The gated Cardiolite study demonstrates myocardial thickening and inward wall motion. The reported LVEF is 69%. Impression: 1. Rest and stress SPECT Cardiolite nuclear imaging demonstrate relative uniform tracer uptake and myocardial perfusion appearing within normal limits. 2. The gated Cardiolite study reports an LVEF of 69%. Labs: No Data to Display Diagnostics: Electrocardiogram Echocardiogram Stress Test NM Stress Test Chest X-Ray Pulmonary: No Data to Display Assessment and Plan Assessment and Plan (1) Chest tightness: Status: Acute Orders: Orders: 12 Lead EKG performed by [facility] 05/13/21 Arnold VERDUGO PA: Patient is still having chest discomfort that is concerning for angina. Because she recently had a stress test that was negative and she has had ongoing chest discomfort would like to proceed with a diagnostic heart catheterization to further evaluate. This is scheduled for next week. (2) Presence of stent in coronary artery: Status: Acute Comment: PCI/ELLEN to LCX 09/21/13 @ [facility] Orders: Orders: 12 Lead EKG performed by [facility] 05/13/21 LUCINA Moreno: With patient's history of coronary artery disease her symptoms are concerning for angina as they are similar to what she had prior to her previous stenting. We will proceed with a diagnostic heart catheterization. (3) Essential Hypertension Status: Acute LUCINA Moreno: Blood pressure is well controlled on current medications, we do not recommend any changes at this time. (4) Pure hypercholesterolemia: Status: Acute LUCINA Moreno: Pt will continue with current meds. Plan Details Additional Comments: Thank you for allowing me to participate in the care of your patient. Please don't hesitate to call if any issues arise. This note was generated using a voice recognition system and there may be incorrect words, spelling, or punctuation that were not noted when reviewing the office note prior to saving. Follow Up: 3 Months (MMM/KR) COVID (Procedure Consent) Procedure Criteria Procedure Criteria: Yes Elective The surgeon/proceduralist and patient have discussed in detail the risk of exposure to and/or potential harm posed by the COVID-19 virus with having a surgery/procedure at this time versus the risk of delaying the surgery/procedure. It is not possible to know either the risk of delaying the surgery or procedure or chance of getting an infection with perfect accuracy, but a joint decision was made between the patient and the surgeon/proceduralist to proceed at this time with the scheduled surgery/procedure as indicated on the consent form. Coding Level of Care Code Off vis,est,level 3 Diagnoses Chest tightness R07.89 Presence of stent in coronary artery Z95.5 Essential hypertension I10 Pure hypercholesterolemia E78.00 Coding Level of Care Code Off vis,est,level 3 Diagnoses Chest tightness R07.89 Presence of stent in coronary artery Z95.5 Essential hypertension I10 Pure hypercholesterolemia E78.00 05/14/21 0855<Electronically signed by Radha VERDUGO>Date Radha VERDUGO Cosigner Signature:Date (if applicable) CC: Dr. Dante De La O MD ~ Assessment & Plan Addt'l Comments I have re-examined the patient. There are no clinical changes since date of exam
[2021-05-19 08:47] LABS: Internal QC Validated? YES +Cl - CLEAR BKGD; Pregnancy, Urine Negative Negative
--- NOTE | 2021-05-19 12:39 | CL.D_ITS ---
Patient Name: EMILIANO DAVIS Study Date: 05/19/2021 Performing: Krzysztof Henley MD Ht: 66.92 inches 170 cm : 1970 Wt: 180.78 lbs 82 kg Age: 50 Gender: female BSA: 1.94 PROCEDURE(S) PERFORMED DC01-([id number])LHC/COR/LV CLINICAL PROFILE AND INDICATIONS Indications: Worsening Angina, Suspected CAD Heart Failure: None Stress/Imaging Date: 11/20/2020tress Test with SPECT MPI: Positive Intermediate Risk: ECG portio n abnormal; Nuclear portion negative Angina Classification Anginal Classification w/in 2 Weeks: CCS III CAD Presentations: Other: worsening angina CONCLUSIONS Normal Left Ventricular End Diastolic Pressure Normal LV size, wall motion,and systolic function LVEF: by LV gram 65 % LCX: Stent: Patent RECOMMENDATIONS Risk factor modification Medical therapy DESCRIPTION OF PROCEDURE The patient arrived to the procedure lab. The risks and benefits of the procedure as well as a full d escription of our services here and current unavailability of surgical backup were fully explained to the patient and/or their significant other prior to the catheterization. The Timeout was completed, verifying the correct patient and procedure. The patient's procedural site was prepped and draped in the usual fashion. Local anesthetic was given subcutaneously to right radial region with Lidocaine 2% . Using a modified Seldinger technique, arterial access was obtained via the right radial artery, a 6 Fr sheath was inserted. Left Coronary Artery selective angiography was performed in multiple views u sing a 5 Fr. 4.0 [place] catheter. Right Coronary Artery selective angiography was then performed in mu ltiple views using a 5 Fr. 4.0 [place] catheter. Left Ventriculography was performed in BURCH projection using a 5 Fr. Pigtail catheter. LV to AO pullback pressures were then recorded.The arterial sheath was pulled and a TR Band was applied for hemostasis. 10cc of air CORONARY ANGIOGRAPHY DOMINANCE: Right Dominant LEFT HEART ASSESSMENT Left Ventricular Ejection Fraction: by LV Gram 65 % Normal LV wall motion Normal Left Ventricular End Diastolic Pressure LVEDP: 8 mmHg LEFT MAIN: Angiographically normal: short bifurcating vessel LEFT ANTERIOR DESCENDING ARTERY: Mild luminal irregularities CIRCUMFLEX ARTERY: PROX CIRC: Previously placed stent is patent MID CIRC: Mild luminal irregularities RAMUS: Angiographically normal RIGHT CORONARY ARTERY: Mild luminal irregularities AORTIC ROOT: Angiographically normal COMPLICATIONS No Complications PROCEDURE MEDICATIONS Fentanyl 50 mcg IV Versed 1 mg IV Fentanyl 50 mcg IV Versed 1 mg IV Oxygen: 2 L/min via nasal cannula Heparin given IA 05/19/2021 12:07:02 Verapamil 2.5mg, Ntg 100mcgs, 3000 units of Heparin given IA 05/19/2021 12:07:02 SUMMARY OF HEMODYNAMIC DATA Time AIR REST ECG 08:56:44 Art 159/51 (86) 12:05:18 AO 122/56 (84) SA 12:08:54 LV 144/-23, 13 12:16:54 LV 152/-29, 8 12:17:01 LV 146/-27, 11 12:17:44 LVp 140/-17, 10 12:17:49 AOp 143/5 (79) 12:17:55 Signed By Krzysztof Henley MD On 05/19/2021 12:38:58 PM Krzysztof Henley MD
== END 2021-05-19 23:59 | disposition home or self-care (01) ==
PROVIDERS: Nurse Practitioner Gerontology; PCP Family Medicine; Referring Provider Internal Medicine Cardiovascular Disease; Visit Provider Internal Medicine Cardiovascular Disease
DX: I25.10 Atherosclerotic heart disease of native coronary artery without angina pectoris (principal); Z95.1 Presence of aortocoronary bypass graft; I10 Essential (primary) hypertension; E78.5 Hyperlipidemia, unspecified; I49.3 Ventricular premature depolarization; E78.00 Pure hypercholesterolemia, unspecified; D64.9 Anemia, unspecified; F41.9 Anxiety disorder, unspecified; K21.9 Gastro-esophageal reflux disease without esophagitis; Z85.3 Personal history of malignant neoplasm of breast; Z79.82 Long term (current) use of aspirin; Z79.899 Other long term (current) drug therapy
CPT/HCPCS: 36415; 71046; 80048; 81025; 85025; 85610; 85730; 93458; 99152; 99153; J7040; Q9967; C1769; C1894

== ENCOUNTER 2021-05-22 10:33 | Outpatient (CLI) | payer OTHER, SELFPAY ==
--- NOTE | 2021-05-24 06:55 | PFT ---
INTRODUCTION: The patient is a 50-year-old female that presents for pulmonary function studies secondary to a diagnosis of shortness of breath. Respiratory therapy reported good patient effort. Bronchodilators were used during testing. INTERPRETATION: Forced expiration spirometry demonstrates no evidence of a large airways obstructive ventilatory defect. There was no significant response to aerosolized bronchodilators. Spirograms are of good quality and plateau normally. The respiratory flow volume loop is normal. Body plethysmography was performed and reveals lung volumes to be within normal limits. Diffusing capacity by single breath CO was also within normal limits. IMPRESSION: Grossly normal pulmonary function studies.
== END 2021-05-22 23:59 | disposition short-term general hospital (02) ==
LOC: PSN 10:36
PROVIDERS: PCP Family Medicine; Referring Provider Internal Medicine Cardiovascular Disease; Visit Provider Internal Medicine Cardiovascular Disease
DX: R06.02 Shortness of breath (principal); R07.89 Other chest pain
CPT/HCPCS: 94060; 94726; 94729

== ENCOUNTER → 2022-09-16 | Outpatient (CLI) | payer OTHER, SELFPAY ==
--- NOTE | 2022-09-16 13:13 | US_ITS ---
HISTORY: aub. TECHNIQUE: Transabdominal and transvaginal pelvic ultrasound was performed with [place] scale and color Doppler evaluation. 125 images. COMPARISON: 10/28/2020. FINDINGS: UTERUS: 5.4 x 2.2 x 4.3 cm. ENDOMETRIAL THICKNESS: 2-3 mm with mild fluid in the endometrial cavity. RIGHT OVARY: 1.1 x 1.1 x 1.4 cm. Doppler flow noted. No adnexal masses LEFT OVARY: 0.7 x 1.8 x 0.6 cm. Doppler flow noted. No adnexal masses FREE FLUID: None. URINARY BLADDER: Distended at 461 cc. US/Pelvic w/ Transvaginal IMPRESSION: Endometrial atrophy with trace hemorrhage in the endometrial canal. Electronically Signed: Yesenia Alvares MD at 14:28 EDT ,
== END | disposition home or self-care (01) ==
LOC: US 13:12
PROVIDERS: PCP Family Medicine; Referring Provider Obstetrics & Gynecology; Visit Provider Obstetrics & Gynecology
DX: N93.9 Abnormal uterine and vaginal bleeding, unspecified (principal)
CPT/HCPCS: 76830; 76856

== ENCOUNTER → 2022-11-04 | Outpatient (CLI) | payer OTHER, SELFPAY ==
--- NOTE | 2022-11-04 12:50 | US_ITS ---
STUDY: ULTRASOUND OF THE FEMALE PELVIS - COMPLETE REASON FOR EXAM: Female, 52 years old. PMB LMP: Patient is postmenopausal. TECHNIQUE: Transabdominal and Transvaginal TECHNICAL QUALITY: Adequate. COMPARISON: None. FINDINGS: The uterus is anteverted and is in a midline position. The uterus measures 4.6 cm x 3.9 cm x 2.5 cm. Normal uterine cervix. The endometrium is thickened and measures 5 mm in thickness, and is fluid distended. There is no demonstrated endometrial mass. There is no demonstrated myometrial mass. I.U.D. - The patient does not have an I.U.D. The right ovary is non-visualized. The left ovary is non-visualized. There is no fluid in the cul-de-sac. The pre void volume of the bladder was 289 ml. US/Pelvic w/ Transvaginal IMPRESSION: Thickened fluid distended endometrium. Electronically Signed: Owen Almeida MD at 14:39 EDT ,
== END | disposition home or self-care (01) ==
PROVIDERS: PCP Family Medicine; Referring Provider Obstetrics & Gynecology; Visit Provider Obstetrics & Gynecology
DX: Z78.0 Asymptomatic menopausal state (principal); N95.0 Postmenopausal bleeding
CPT/HCPCS: 76830; 76856

== ENCOUNTER 2022-12-07 09:31 | Day surgery (SDC) | payer OTHER, SELFPAY ==
--- NOTE | 2022-12-03 07:49 | EKG12_ITS ---
Test Reason : PRE OP Blood Pressure : / mmHG Vent. Rate : 061 BPM Atrial Rate : 061 BPM P-R Int : 122 ms QRS Dur : 072 ms QT Int : 416 ms P-R-T Axes : 049 064 043 degrees QTc Int : 418 ms Normal sinus rhythm Normal ECG Confirmed by LUIZA MOY, LEE ([id number]), editor city EMILY DUEÑAS ([id number]) on 12/06/2022 8:29:32 AM Referred By: Mitali Moulton Confirmed By:JONATHAN JARRETT MD
[2022-12-03 09:47] LABS: Absolute Lymphocyte Count 0.78 X10^3/uL (0.83-4.51); Absolute Neutrophil Count 3.5 X10^3/uL (2.0-7.7); Basophil# 0.04 X10^3/uL; Basophil% 0.8 % (0-1); Eosinophil# 0.14 X10^3/uL; Eosinophils% 2.9 % (0-5); Hematocrit 38.9 % (37-47); Hemoglobin 12.5 g/dL (12.0-15.0); Lymphocyte # 0.78 X10^3/ul (0.83-4.51); Lymphocyte % 16.3 % (19-41); Mean Corp Hgb Conc 32.1 g/dL (32-36); Mean Corpuscular Hgb 31.4 pg (27.0-32.0); Mean Corpuscular Volume 97.7 fL (81-99); Mean Platelet Vol. 10.9 fl (6.2-12.0); Monocyte# 0.37 X10^3/uL; Monocyte% 7.7 % (0-10); NRBC Flagged by Analyzer 0 % (0-5); Neutrophil # 3.45 X10^3/uL (2.7-7.7); Neutrophil % 72.1 % (47-70); Platelet Count 192 K/mm3 (150-450); RBC Distribution Width CV 12.7 % (11.6-14.6); RBC Distribution Width SD 45.7 fl (35.1-43.9); Red Blood Count 3.98 M/mm3 (4.2-5.4); White Blood Count 4.8 K/mm3 (4.4-11.0)
[2022-12-03 10:21] LABS: ALB/GLOB Ratio 1.1 RATIO (0.9-2.4); AST(SGOT) 20 U/L (15-37); Alanine Aminotransfer ALT/SGPT 27 U/L (13-56); Albumin, Serum 3.7 g/dL (3.2-5.0); Alkaline Phosphatase 56 U/L (45-117); Anion Gap 3 (5-15); BUN 14 mg/dL (7-18); BUN/Creat Ratio 14.4 RATIO (10-20); Calcium,Total 8.9 mg/dL (8.5-10.1); Chloride 109 mmol/L (98-107); Creatinine, Serum 0.97 mg/dL (0.55-1.02); EST Glomerular Filtration Rate 63 mL/min (>60); Est Glom Filt Rate - Afr Amer 77 mL/min (>60); Globulin 3.4 g/dL (2.2-4.2); Glucose 87 mg/dL (74-106); Potassium 4.5 mmol/L (3.5-5.1); Protein, Total 7.1 g/dL (6.4-8.2); Sodium Level 142 mmol/L (136-145)
[2022-12-07] VITALS (7 sets, daily range): BP systolic 104–133; BP diastolic 55–65; PULSE 53–63; RESP 16–18; TEMP 36.2–37.2; O2SAT 99–100; BMI 27.6
--- NOTE | 2022-12-07 09:52 | HP.PCM_ITS ---
History and Physical Date of Admission: 12/07/22 MR#: [id number] Acct: [id number] Name: EMILIANO DAVIS Rep #: [id number] : 1970 Provider: Dr. Mitali Moulton MD Age/Sex: 52/F [place] [facility] [place]: Signed Intake Vital Signs 10/19/2311:59 11/30/2315:11 11/30/2315:18 Height 5 ft 7 in 5 ft 7 in 5 ft 7 in Weight: 181 lb 6 oz BMI 28.4 BP 135/74 H Intake Visit Reasons: pre op Allergies metoclopramide [From Reglan] Allergy (Mild, Verified 10/18/22 12:58) hypercodeine Allergy (Verified 10/18/22 12:58) Hiveslisinopril Adverse Reaction (Unknown, Verified 10/18/22 12:58) Coughlovastatin Adverse Reaction (Unknown, Verified 10/18/22 12:58) Unknown Is last menstrual period known: No Post menopausal: No Patient : No : No PFSH Medical History Anemia Anxiety Atherosclerotic heart disease of [place] coronary artery without angina pectoris Breast cancer Breast cancer, right Cardiology follow-up encounter Easy bruising Essential hypertension Excessive bleeding Gastric reflux GERD (gastroesophageal reflux disease) Heart disease High cholesterol History of angina History of trigger finger Hyperlipidemia Hypertension Loose, teeth Non-smoker PMB (postmenopausal bleeding) Post-menopausal Presence of stent in coronary artery (~09/21/13) Pure hypercholesterolemia SOB (shortness of breath) on exertion Wears contact lenses Surgical History H/O dilation and curettage H/O lumpectomy History of endometrial ablation History of left heart catheterization (LHC) (~05/19/21) History of partial mastectomy of right breast Presence of coronary angioplasty implant and graft (~09/21/13) Family History Mother Heart disease Hypertension CVA (cerebral vascular accident) Parkinsons SeizuresFather COPD (chronic obstructive pulmonary disease) Hypertension Social History Smoking Status: Never smoker alcohol intake: never substance use type: does not use caffeine: Yes what type of physical activity do you participate in: walking frequency: 5-6 times per week seatbelt use: always do you feel safe at home: Yes additional social history: - [employer] HPI pre op Details: EMILIANO DAVIS is a 52 year old who presents for postmenopausal bleeding, 5 mm lining with fluid present, on tamoxifen. Female Reproductive History Menopausal Symptoms: No night sweats History 2 Elective abortions Hx Para 2 Spontaneous abortions Hx # Term Pregnancies Ectopic pregnancies Hx # Pregnancies Multiple births # of living children Past Pregnancies Del. Date Name GA/Weeks Outcome Route Bth Weight Infant Gen Labor Lgth Anesthesia Del Locatn Provider FOB Unknown 1995 Anshu Unknown 1998 Dragan KIMBLE Const Constitutional: Denies fatigue, night sweats, weight gain or weight loss ENT ENT: Reports system reviewed and no additional complaints, except as documented Cardio Card: Denies chest pain Resp Resp: Denies cough or dyspnea GI GI: Reports as per HPI; Denies abdominal pain, constipation, nausea or vomiting : Denies nipple discharge, urinary frequency, urinary incontinence, urinary hesitancy, urinary urgency, vaginal discharge, vaginal dryness, vaginal odor or vaginal pruritus Musc Musc: Denies arthralgias, back pain or muscle weakness Skin Skin/Breast: Denies alopecia, change in hair, dry skin, breast mass, breast pain, breast skin changes or nipple discharge Neuro Neuro: Reports system reviewed and no additional complaints, except as documented Psych Psych: Reports system reviewed and no additional complaints, except as documented Endo Endo: Denies cold intolerance, excessive sweating, heat intolerance or polyd ipsia Amilcar/Lymph Hematologic/Lymphatic: Denies easy bleeding, Denies easy bruising and Denies lymphadenopathy Exam Const General: cooperative, healthy appearing, comfortable and no acute distress Orientation: alert [facility] Head: normal to inspection and normocephalic Ears: hearing grossly normal bilaterally and external ears normal Nose: external nose normal and nares normal Face and sinus: normal facial exam Neck Neck: normal visual inspection and no lymphadenopathy Thyroid: thyroid normal Chest Chest palpation & inspection: normal inspection of the chest Resp Effort & Inspection: normal respiratory effort Auscultation: clear to auscultation bilaterally Cardio Rate: regular rate Rhythm: regular rhythm Heart Sounds: S1 normal and S2 normal GI Inspection: normal to inspection and non-distended Palpation: soft and no hepatosplenomegaly Musc Other: gross motor intact no deficits, full bilateral strength Skin General: no rashes or lesions noted Neuro General: patient alert, patient awake, moves all extremities and no focal motor deficits Motor: muscle tone normal throughout Extrem General: normal to inspection and no pedal edema Psych Appearance: grossly normal Mental Status: mental status grossly normal Affect: normal affect Speech and Movement: speech and movement normal Coding Level of Care Code No Charge Diagnoses Thickened endometrium R93.89 PMB (postmenopausal bleeding) N95.0 Assessment and Plan Assessment and Plan (1) Thickened endometrium: Status: Acute Comment: plan d and c hysteroscopy, cytotec preop (2) PMB (postmenopausal bleeding): Status: Acute Medications: New misoprostol (Cytotec) take the night before and two hours prior to the procedure 2 tabs 1RF Plan After discussing the patient's diagnosis and treatment plan options, patient wishes to proceed with surgical management. I have discussed with the patient the risks, benefits, and alternatives of the procedure which include but are not limited to risks of anesthesia, bleeding, infection, possible damage to bowel, bladder, or surrounding vasculature which could lead to additional surgery to evaluate any complications. Patient agrees to procedure and wishes to proceed. ACOG/uptodate references given for additional information regarding procedure. 11/29/22 1718 <Electronically signed by Mitali Moulton MD> Date Mitali Moulton MD UPDATE- I have seen the patient and performed any clinically relevant updates to the history and physical exam. Mitali Moulton MD
[2022-12-07] MEDS: Lactated Ringers 1,000 ML 15 ML IV (10:08)
--- NOTE | 2022-12-07 12:04 | OP.PCM_ITS ---
Problems Associated Problem List Diagnoses (1) Thickened endometrium: (2) PMB (postmenopausal bleeding): Report of Operation Date of Procedure: 12/07/22 Pre-Operative Diagnosis: see problem list Post-Operative Diagnosis: same Surgery/Procedure Performed:: Exam under anesthesia and cervical dilation, uterine perforation Description of Surgical Findings:: severe cervical stenosis, minimal uterine descent Surgeon: Mitali Moulton process automation engineer: None Type of Anesthesia: Local MAC Special Medications: none Specimen's removed: EMC, polyp Drains: none Estimated Blood Loss (mL): 50 Fluids Replaced: crystalloid Description of Procedure: Patient was prepped and draped in a normal sterile fashion under MAC anesthesia. A weighted speculum was placed in the vagina and the anterior lip of the cervix was grasped with a single-tooth tenaculum. Severe cervical stenosis was encountered and attempts were made to enter into the uterus and i was unsuc cessful at entry, and an inadvertent uterine perforation with the uterine sound was suspected as the uterine depth increased to 10 cm which was larger than the uterine size measurements on ultrasound. this was noted to be in the midline and minimal and therefore should be self limited, no additional surgery indicated at this time. a cbc will be drawn in postop in 1 hour and the patient will be monitored for stability. all instruments removed from the vagina and patient awoken and taken into recovery in stable condition Grafts/Implants Used: none Complications none Admit VTE Documentation VTE Present on Admission: No VTE Mechan Device Prophylaxis: SCD's Multi Select Codes Urinary/Genital Urinary/Genital CPT Codes: 02645 PEUA (and dilation of cervix) Addendum Addendum: alert billing
--- NOTE | 2022-12-07 12:14 | DCINST_ITS ---
Discharge Instructions Diet Discharge Diet: No restrictions Activity Discharge Activity: Return to Normal Activity, May Shower and May Take a Tub Bath (after 1 week) May resume sexual activity in: 1-2 weeks Weight Bearing Status: Weight bearing as tolerated Lifting Restrictions: none Dressing / Incision Call your doctor if you observe: Fever of 101 or Higher, Using more than 1 pad per hour, Shortness of breath and Uncontrolled pain Follow Up Care Please Follow Up With: Mitali Moulton MD When: Call [phone] to schedule appointment. Test Results: Test results from this visit will be discussed in further detail at your follow- up appointment, if applicable. Discharge Plan Admission Attending Provider: Mitali Moulton Primary Care Provider: Dante De La O Discharge Orders/Prescriptions Prescriptions: No Action atorvastatin [Lipitor] 80 mg tablet 80 mg PO QDAY calcium carbonate [Calcium 500] 500 mg calcium (1,250 mg) tablet 500 mg PO BID alprazolam [Xanax] 2 mg tablet 2 mg PO DAILY PRN PRN (Reason: Anxiety) ferrous sulfate 325 mg (65 mg iron) tablet 325 mg PO DAILY glucosamine-chondroitin [Osteo Bi-Flex] 250-200 mg tablet 2 tab PO DAILY venlafaxine [Effexor XR] 75 mg capsule,extended release 24hr 37.5 mg PO DAILY omeprazole magnesium [Prilosec OTC] 20 mg tablet,delayed release (DR/EC) 20 mg PO DAILY losartan 50 mg tablet 25 mg PO QDAY tamoxifen 20 mg tablet 20 mg PO DAILY nitroglycerin 0.4 mg tablet, sublingual 0.4 mg sublingual Q5-15M PRN (Reason: Chest Pain) Qty: 25 3RF Rx Instructions: do not exceed 3 doses per episode misoprostol [Cytotec] 200 mcg tablet 200 mcg PO .complex Qty: 2 1RF Rx Instructions: take the night before and two hours prior to the procedure aspirin 81 MG tablet,chewable 81 mg PO DAILY Patient Comments: pt states last 11/03/[address] Moulton instructions omega-3 fatty acids-fish oil 1 EACH capsule 3 ea PO DAILY multivitamin with folic acid 1 TABLET tablet 1 tab PO DAILY amlodipine 5 mg tablet 5 mg PO DAILY Qty: 90 3RF metoprolol tartrate 25 mg tablet 25 mg PO BID Qty: 60 11RF isosorbide mononitrate 30 mg tablet extended release 24 hr 30 mg PO DAILY Qty: 30 11RF Referrals / Follow Up: Dante De La O MD [Primary Care Provider] - Disposition Disposition (needs filled in before D/C Order can be placed): Home, Self Care
[2022-12-07 13:12] LABS: Absolute Lymphocyte Count 0.82 X10^3/uL (0.83-4.51); Absolute Neutrophil Count 2.1 X10^3/uL (2.0-7.7); Basophil# 0.03 X10^3/uL; Basophil% 0.9 % (0-1); Eosinophil# 0.06 X10^3/uL; Eosinophils% 1.8 % (0-5); Hematocrit 35.1 % (37-47); Hemoglobin 11.4 g/dL (12.0-15.0); Lymphocyte # 0.82 X10^3/ul (0.83-4.51); Lymphocyte % 24.8 % (19-41); Mean Corp Hgb Conc 32.5 g/dL (32-36); Mean Corpuscular Hgb 31.7 pg (27.0-32.0); Mean Corpuscular Volume 97.5 fL (81-99); Mean Platelet Vol. 10.3 fl (6.2-12.0); Monocyte# 0.27 X10^3/uL; Monocyte% 8.2 % (0-10); NRBC Flagged by Analyzer 0 % (0-5); Neutrophil # 2.12 X10^3/uL (2.7-7.7); Platelet Count 159 K/mm3 (150-450); RBC Distribution Width CV 12.5 % (11.6-14.6); RBC Distribution Width SD 45.1 fl (35.1-43.9); White Blood Count 3.3 K/mm3 (4.4-11.0)
== END 2022-12-07 14:06 | disposition home or self-care (01) ==
LOC: SDC 09:33 → AC 09:35
PROVIDERS: PCP Family Medicine; Referring Provider Obstetrics & Gynecology; Visit Provider Obstetrics & Gynecology
PROC: 0UB98ZZ Excision of Uterus, Via Natural or Artificial Opening Endoscopic (ICD-10-PCS; CPT 58558; principal; 2022-12-07 11:05)
DX: N88.2 Stricture and stenosis of cervix uteri (principal); N95.0 Postmenopausal bleeding; I25.10 Atherosclerotic heart disease of native coronary artery without angina pectoris; E78.00 Pure hypercholesterolemia, unspecified; I10 Essential (primary) hypertension; Z79.82 Long term (current) use of aspirin; Z79.899 Other long term (current) drug therapy
CPT/HCPCS: 57800; 00940; 36415; 80053; 85025; 86850; 86900; 86901; 93005; J7120; J2405

== ENCOUNTER 2023-02-22 07:41 | Day surgery (SDC) | payer OTHER, SELFPAY ==
[2023-02-14 14:07] LABS: Hematocrit 36.8 % (37-47); Hemoglobin 12.3 g/dL (12.0-15.0); Mean Corp Hgb Conc 33.4 g/dL (32-36); Mean Corpuscular Hgb 31.9 pg (27.0-32.0); Mean Corpuscular Volume 95.6 fL (81-99); Mean Platelet Vol. 10.5 fl (6.2-12.0); Platelet Count 190 K/mm3 (150-450); RBC Distribution Width CV 12.9 % (11.6-14.6); Red Blood Count 3.85 M/mm3 (4.2-5.4); White Blood Count 4.6 K/mm3 (4.4-11.0)
[2023-02-14 14:19] LABS: Prothrombin Time (Protime)PT. 13.3 SECONDS (11.7-14.9)
[2023-02-14 14:20] LABS: Partial Thromboplast Time 33.5 Seconds (24.1-36.2)
[2023-02-14 14:35] LABS: Magnesium 2.3 mg/dL (1.6-2.6)
--- NOTE | 2023-02-22 | HYST_PTH ---
PATIENT: EMILIANO DAVIS LOC: [facility] [place] U#:[id number] AGE/SX: 52/F ROOM: RE02/22/[address]: Dr. Mitali Moulton MD : 1970 BED: DIS: 02/22/2023 SPEC #: [id number] RECD: 02/22/23 15:12 STATUS: SHERICE BAILEY #: [id number] MYA: 02/22/23 00:[address]: Mitali Moulton DEPT: SURGICAL PATHOLOGY RECD BY: Zohaib Salinas ENTERED: 02/23/23 10:18 SP TYPE: HYSTERECT OTHR DR: MD Dr. Dante Valiente MD Tissues: Uterus, NOS Procedures: Surgery Specimen Level V HEADER OPERATION: ERAS, hysterectomy, LAVH, bilateral salpingo-oophorectomy PRE-OP DIAGNOSIS: Postmenopausal bleeding, thickened endometrium TISSUE SUBMITTED: Uterus, cervix, bilateral fallopian tubes and ovaries MICROSCOPIC DIAGNOSIS Uterus, cervix, bilateral fallopian tubes and ovaries, hysterectomy and bilateral salpingo-oophorectomy: Cervix - chronic inflammation. Endometrium - weakly proliferative endometrium. Myometrium - focal superficial adenomyosis. Bilateral fallopian tubes - no pathologic diagnosis. Bilateral ovaries - no pathologic diagnosis. SJ:rg 02/24/2023 COMMENT Please make reference to previous specimen ([id number]) endometrium, curettings with diagnosis of scant benign glandular epithelial cells and rare benign squamous epithelium and fragment of benign fibrous tissue. MICROSCOPIC DESCRIPTION Slides are reviewed. GROSS DESCRIPTION Received in fixative is one container labeled with the patient's name and designated uterus, cervix, bilateral fallopian tubes and ovaries. The specimen consists of a hysterectomy specimen consisting of uterus with cervix and attached bilateral fallopian tubes and ovaries. The uterus with cervix weighs 35 gm and measures 6.5 x 5.0 x 3.0 cm. The serosal surface is rivera, glistening. The ectocervical mucosa is unremarkable. The external os is oval in contour. The endocervical canal measures 2.5 cm in length and the endocervical mucosa is rivera, glistening and unremarkable. The narrow endometrial cavity measures 3.0 cm in length and 0.3 cm in diameter. The proximal portion of endometrial cavity shows fibrosis. The endometrium measures <0.1 cm in thickness. Sections of the uterine wall do not reveal any mass lesion and measures 1.3 cm in thickness. The right fallopian tube measures 6.0 cm in length and up to 0.5 cm in diameter. The fimbrial end is identified. No tubo-ovarian adhesions are noted. Sections reveal unremarkable cut surfaces. The right ovary measures 3.0 x 1.0 x 1.0 cm. Sections reveal unremarkable cut surfaces. The left fallopian tube measures 5.5 cm in length and up to 1.0 cm in diameter. The fimbrial end is identified. It is interrupted in the middle. No tubo-ovarian adhesions are noted. The left ovary measures 3.0 x 1.2 x 0.7 cm. Sections reveal unremarkable cut surfaces. Field Rep sections are submitted in ten cassettes as follows: 1 - anterior cervix, 2 - posterior cervix, 3 & 4 - anterior uterine wall, 5 & 6 - posterior uterine wall, 7 - right fallopian tube, 8 - right ovary, 9 - left fallopian tube, 10 - left ovary. / LUIGI:zeenat 02/23/2023 TC:5 CPT: 51084
--- NOTE | 2023-02-22 07:49 | HP.PCM_ITS ---
History and Physical Intake Vital Signs 12/20/2313:38 02/07/2313:47 02/07/2313:49 Height 5 ft 8 in 5 ft 7.5 in 5 ft 8 in Weight: 177 lb 4 oz BMI 27.3 BP 115/69 Blood Pressure Location Lt brachial Position Sitting Intake Visit Reasons: [facility] Systems Test Analyst Required: No Is patient in pain?: No Feel stressed/tense/nervous/anxious/difficulty sleeping: not at all Allergies metoclopramide [From Reglan] Allergy (Mild, Verified 02/07/23 13:48) hypercodeine Allergy (Verified 02/07/23 13:48) Hiveslisinopril Adverse Reaction (Unknown, Verified 02/07/23 13:48) Coughlovastatin Adverse Reaction (Unknown, Verified 02/07/23 13:48) Unknown Medications aspirin 81 mg chewable tablet 81 mg PO DAILY 06/18/14 [History Confirmed 02/07/23] multivitamin with folic acid 400 mcg tablet 1 tab PO DAILY 06/18/14 [History Confirmed 02/07/23] omega-3 fatty acids-fish oil 340 mg-1,000 mg capsule 3 ea PO DAILY 06/18/14 [History Confirmed 02/07/23] alprazolam 2 mg tablet (Xanax) 2 mg PO DAILY PRN PRN Anxiety 08/18/17 [History Confirmed 02/07/23] atorvastatin 80 mg tablet (Lipitor) 80 mg PO QDAY 08/18/17 [History Confirmed 02/07/23] calcium carbonate 500 mg calcium (1,250 mg) tablet (Calcium 500) 500 mg PO BID 08/18/17 [History Confirmed 02/07/23] ferrous sulfate 325 mg (65 mg iron) tablet 325 mg PO DAILY 10/02/19 [History Confirmed 02/07/23] glucosamine-chondroitin 250 mg-200 mg tablet (Osteo Bi-Flex) 2 tab PO DAILY 11/06/20 [History Confirmed 02/07/23] omeprazole magnesium 20 mg tablet,delayed release (Prilosec OTC) 20 mg PO DAILY 04/16/21 [History Confirmed 02/07/23] venlafaxine 75 mg capsule,extended release 24 hr (Effexor XR) 37.5 mg PO DAILY 04/16/21 [History Confirmed 02/07/23] losartan 50 mg tablet 25 mg PO QDAY 08/13/21 [History Confirmed 02/07/23] tamoxifen 20 mg tablet 20 mg PO DAILY 02/10/22 [History Confirmed 02/07/23] isosorbide mononitrate 30 mg tablet,extended release 24 hr 30 mg PO DAILY #30 tabs 03/31/22 [Rx Confirmed 02/07/23] metoprolol tartrate 25 mg tablet 25 mg PO BID #60 tabs 03/31/22 [Rx Confirmed 02/07/23] misoprostol 200 mcg tablet (Cytotec) 200 mcg PO .complex #2 tabs 11/29/22 [Rx Confirmed 02/07/23] nitroglycerin 0.4 mg sublingual tablet 0.4 mg sublingual Q5-15M PRN Chest Pain #25 tabs 12/03/22 [Rx Confirmed 02/07/23] amlodipine 5 mg tablet 5 mg PO DAILY #90 tabs 01/25/23 [Rx Confirmed 02/07/23] Is last menstrual period known: Yes Patient : No : No PFSH Medical History Anemia Anxiety Arthritis Atherosclerotic heart disease of [place] coronary artery without angina pectoris Breast cancer Breast cancer, right Cardiology follow-up encounter Chest pain Depression Easy bruising Essential hypertension Gastric reflux GERD (gastroesophageal reflux disease) Heart disease High cholesterol History of angina History of pain when walking History of stress test History of trigger finger Hyperlipidemia Hypertension Non-smoker PMB (postmenopausal bleeding) Post-menopausal Presence of stent in coronary artery (~09/21/13) Pure hypercholesterolemia SOB (shortness of breath) on exertion Syncope Wears contact lenses Surgical History H/O dilation and curettage H/O lumpectomy History of cardiac catheterization History of endometrial ablation History of hysteroscopy History of left heart catheterization (LHC) (~05/19/21) History of partial mastectomy of right breast Presence of coronary angioplasty implant and graft (~09/21/13) Family History Mother Heart disease Hypertension CVA (cerebral vascular accident) Parkinsons SeizuresFather COPD (chronic obstructive pulmonary disease) Hypertension Social History Smoking Status: Never smoker alcohol intake: never substance use type: does not use caffeine: Yes what type of physical activity do you participate in: walking frequency: 5-6 times per week seatbelt use: always do you feel safe at home: Yes additional social history: - [employer] [facility] Details: EMILIANO DAVIS is a 52 year old who presents for preop visit, has had persistent postmenopausal bleeding. nl stress test at [facility] in October. Female Reproductive History Menopausal Symptoms: No night sweats History 2 Elective abortions Hx Para 2 Spontaneous abortions Hx # Term Pregnancies Ectopic pregnancies Hx # Pregnancies Multiple births # of living children Past Pregnancies Del. Date Name GA/Weeks Outcome Route Bth Weight Gen Labor [facility] FOB Unknown 1995 Anshu Unknown 1998 Dragan Mantilla Constitutional: Denies fatigue, night sweats, weight gain or weight loss ENT ENT: Reports system reviewed and no additional complaints, except as documented Cardio Card: Denies chest pain Resp Resp: Denies cough or dyspnea GI GI: Reports as per HPI; Denies abdominal pain, constipation, nausea or vomiting : Denies nipple discharge, urinary frequency, urinary incontinence, urinary hesitancy, urinary urgency, vaginal discharge, vaginal dryness, vaginal odor or vaginal pruritus Musc Musc: Denies arthralgias, back pain or muscle weakness Skin Skin/Breast: Denies alopecia, change in hair, dry skin, breast mass, breast pain, breast skin changes or nipple discharge Neuro Neuro: Reports system reviewed and no additional complaints, except as documented Psych Psych: Reports system reviewed and no additional complaints, except as documented Endo Endo: Denies cold intolerance, excessive sweating, heat intolerance or polydipsia Amilcar/Lymph Hematologic/Lymphatic: Denies easy bleeding, Denies easy bruising and Denies lymphadenopathy Exam Const General: cooperative, healthy appearing, comfortable and no acute distress Orientation: alert [facility] Head: normal to inspection and normocephalic Ears: hearing grossly normal bilaterally and external ears normal Nose: external nose normal and nares normal Face and sinus: normal facial exam Neck Neck: normal visual inspection and no lymphadenopathy Thyroid: thyroid normal Chest Chest palpation & inspection: normal inspection of the chest Resp Effort & Inspection: normal respiratory effort Auscultation: clear to auscultation bilaterally Cardio Rate: regular rate Rhythm: regular rhythm Heart Sounds: S1 normal and S2 normal GI Inspection: normal to inspection and non-distended Palpation: soft and no hepatosplenomegaly Musc Other: gross motor intact no deficits, full bilateral strength Skin General: no rashes or lesions noted Neuro General: patient alert, patient awake, moves all extremities and no focal motor deficits Motor: muscle tone normal throughout Extrem General: normal to inspection and no pedal edema Psych Appearance: grossly normal Mental Status: mental status grossly normal Affect: normal affect Speech and Movement: speech and movement normal Coding Level of Care Code No Charge Diagnoses PMB (postmenopausal bleeding) N95.0 Thickened endometrium R93.89 Assessment and Plan Assessment and Plan (1) PMB (postmenopausal bleeding): Status: Acute Comment: counseled regarding risks, plan for LAVHBSO for persistent PMB, post ablation and history of breast cancer on tamoxifen. (2) Thickened endometrium: Status: Acute Comment: cervical stenosis, unable to sample at d and c proceed with LAVHBSO Plan After discussing the patient's diagnosis and treatment plan options, patient wishes to proceed with surgical management. I have discussed with the patient the risks, benefits, and alternatives of the procedure which include but are not limited to risks of anesthesia, bleeding, infection, possible damage to bowel, bladder, or surrounding vasculature which could lead to additional surgery to evaluate any complications. Patient agrees to procedure and wishes to proceed. ACOG/uptodate references given for additional information regarding procedure. UPDATE- I have seen the patient and performed any clinically relevant updates to the history and physical exam. Mitali Moulton MD
[2023-02-22] MEDS: Lactated Ringers 1,000 ML 40 ML IV (08:20)
[2023-02-22] MEDS: Magnesium 1 GM over 15 mins IV (08:21)
[2023-02-22] MEDS: Scopolamine 1mg/72hr Patch 1 PATCH TD (08:21)
[2023-02-22] MEDS: Enoxaparin 40 MG/0.4 ML Syringe SC (08:23)
[2023-02-22] MEDS: dexAMETHasone 4 MG/ML Vial 8 MG IV (08:24)
[2023-02-22] MEDS: Phenazopyridine 95 MG Tablet 190 MG PO (08:26)
[2023-02-22] MEDS: Acetaminophen 500 MG Tablet 1000 MG PO ×2 (08:26→14:28)
[2023-02-22] MEDS: Celecoxib 200 MG Capsule 400 MG PO (08:26)
[2023-02-22] MEDS: Gabapentin 600 MG Tablet PO (08:27)
[2023-02-22 08:29] VITALS: BP 96/60; PULSE 65; RESP 18; TEMP 36.3; O2SAT 100; BMI 27.0
[2023-02-22 08:34] LABS: Bedside Glucose 92 mg/dL (74-106)
--- NOTE | 2023-02-22 10:03 | OP.PCM_ITS ---
Problems Associated Problem List Diagnoses (1) Thickened endometrium: (2) PMB (postmenopausal bleeding): (3) Depression: (4) Presence of stent in coronary artery: (5) S/P laparoscopic assisted vaginal hysterectomy (LAVH): Report of Operation Date of Procedure: 02/22/23 Pre-Operative Diagnosis: see A/P Post-Operative Diagnosis: same Surgery/Procedure Performed:: VIKTORIYA Surgeon: Mitali Moulton supervisor border department: None (akbar gonzalez) Type of Anesthesia: General Special Medications: none Specimen's removed: uterus, tubes, ovaries Drains: reeves Estimated Blood Loss (mL): 100 Fluids Replaced: crystalloid Description of Procedure: Patient received preoperative antibiotics and SCDs were on preoperatively. Patient was taken back to the operating room and placed in the dorsal lithotomy position. General anesthesia was induced and patient was prepped and draped in normal sterile fashion. Uterine manipulator was unable to be placed due to stenosis and Reeves catheter placed in the bladder. The umbilicus was grasped with towel clamps and an intraumbilical incision was made after injecting with quarter percent Marcaine and a Veress needle entered into the abdomen confirmed to be intra-abdominal with a low opening pressure. Abdomen was insufflated with CO2 gas and the Veress needle removed and the 5 mm trocar was placed under direct visualization without complication. Right and left lower quadrants were transilluminated and injected with quarter percent Marcaine and 5 mm ports placed under direct visualization. Pelvis was well visualized see operative findings for additional information. Bilateral IP ligaments were identified and transected across with the LigaSure device. The broad ligament was opened up by transecting the round ligament bilaterally and skeletonizing the uterine vessels bilaterally and creating a bladder flap using the LigaSure device. The uterine arteries were transected bilaterally with good visualization of the bladder and the ureters were seen to be inferior lateral to the operative area. Attention was then paid to the vaginal portion of the procedure and the cervix was grasped with Gail clamps and circumferentially injected with dilute vasopressin. A circumferential incision was made and the vaginal mucosa was mobilized off posteriorly and the cul-de-sac entered into sharply and a longneck speculum placed. The anterior cul-de-sac was then identified and entered into sharply. The uterosacral ligaments were clamped cut and suture ligated with 0 Monocryl bilaterally followed by the cardinal ligaments which were clamped cut and suture ligated bilaterally with 0 Monocryl. The uterus serially descended and was removed without difficulty. Pelvic sidewall pedicles were checked and noted to have excellent hemostasis. The vaginal mucosa was reapproximated incorporating the posterior peritoneum. This was reapproximated using 0 Vicryl [id number] sutures. Excellent hemostasis was noted. The pelvis and cul-de-sac were well visualized and no significant active bleeding noted . Pressure was taken down and the areas visualized and noted of excellent hemostasis. All ports were removed under direct visualization without complication and the abdomen was desufflated of air. The instruments were removed from the abdomen and the vaginal sweep was negative. Port sites on the abdomen were closed with 4-0 Monocryl interrupted sutures and Steri's and windows were applied. She was awoken and taken recovery in stable condition. Grafts/Implants Used: none Complications none Admit VTE Documentation VTE Present on Admission: No VTE Mechan Device Prophylaxis: SCD's VTE Pharm Prophylaxis ordered?: Yes Procedures Urinary/Genital [id number]: [id number] LAVH+BS/O <250gr Uterus
--- NOTE | 2023-02-22 10:11 | DCINST_ITS ---
Discharge Instructions Diet Discharge Diet: No restrictions Activity May resume sexual activity in: 6 weeks Weight Bearing Status: Full weight bearing Dressing / Incision Call your doctor if your incision/area has: Continuous Slow Oozing, Sudden Increased Bleeding, Increased Pain/ Swelling, Increased Redness and Foul Smelling Discharge Call your doctor if you observe: Fever of 101 or Higher, Using more than 1 pad per hour, Shortness of breath, Chest pain and Uncontrolled pain Suture Line Care: Avoid Pulling/Pushing and Avoid Pinching/Bending Remove Dressing in: 1 week (if present) Cleanse incision/area with: Soap & Water and Keep Dressing Clean & Dry Follow Up Care Please Follow Up With: Mitali Moulton MD When: Call to make an appointment with your doctor for a postop visit in 2 and 6 weeks. Test Results: Test results from this visit will be discussed in further detail at your follow- up appointment, if applicable. Discharge Plan Admission Attending Provider: Mitali Moulton Primary Care Provider: Dante De La O Consulting Providers: Dwight Ruiz Discharge Orders/Prescriptions Prescriptions: New oxycodone-acetaminophen [Percocet] 5-325 mg tablet 1 tab PO Q6H PRN (Reason: pain) 7 Days Qty: 20 0RF naproxen [naproxen] 500 mg tablet 500 mg PO BID PRN PRN (Reason: Pain) Qty: 30 1RF enoxaparin [Lovenox] 40 mg/0.4 mL syringe 40 mg SQ DAILY 10 Days Qty: 20 1RF Continued atorvastatin [Lipitor] 80 mg tablet 80 mg PO QDAY calcium carbonate [Calcium 500] 500 mg calcium (1,250 mg) tablet 500 mg PO DAILY alprazolam [Xanax] 2 mg tablet 2 mg PO DAILY PRN PRN (Reason: Anxiety) ferrous sulfate 325 mg (65 mg iron) tablet 325 mg PO DAILY glucosamine-chondroitin [Osteo Bi-Flex] 250-200 mg tablet 2 tab PO DAILY venlafaxine [Effexor XR] 75 mg capsule,extended release 24hr 37.5 mg PO DAILY omeprazole magnesium [Prilosec OTC] 20 mg tablet,delayed release (DR/EC) 20 mg PO DAILY losartan 50 mg tablet 25 mg PO QDAY tamoxifen 20 mg tablet 20 mg PO DAILY nitroglycerin 0.4 mg tablet, sublingual 0.4 mg sublingual Q5-15M PRN (Reason: Chest Pain) Qty: 25 3RF Rx Instructions: do not exceed 3 doses per episode aspirin 81 MG tablet,chewable 81 mg PO DAILY Patient Comments: pt states last 11/03/[address] Moulton instructions omega-3 fatty acids-fish oil 1 EACH capsule 3 ea PO DAILY multivitamin with folic acid 1 TABLET tablet 1 tab PO DAILY metoprolol tartrate 25 mg tablet 25 mg PO BID Qty: 60 11RF isosorbide mononitrate 30 mg tablet extended release 24 hr 30 mg PO DAILY Qty: 30 11RF amlodipine 5 mg tablet 5 mg PO DAILY Qty: 90 3RF Referrals / Follow Up: Dante De La O MD [Primary Care Provider] - Disposition Disposition (needs filled in before D/C Order can be placed): Home, Self Care
[2023-02-22] MEDS: Cefazolin 2 GM in 0.9% Normal Saline (100mL Bag) 100 ML IV (10:22)
[2023-02-22] MEDS: Vasopressin 20 UNITS/ML Vial (11:07)
[2023-02-22] MEDS: Bupivacaine 0.25% 30 ML Vial (11:50)
[2023-02-22] MEDS: Sugammadex Sodium 200 MG/2 ML VIAL IV (11:54)
[2023-02-22 12:07] VITALS: BP 121/53; BP 96/60; PULSE 90; RESP 16; TEMP 36.2; O2SAT 100
[2023-02-22 12:15] VITALS: BP 115/65; BP 96/60; PULSE 81; RESP 18; O2SAT 100
[2023-02-22 12:30] VITALS: BP 119/59; BP 96/60; PULSE 73; RESP 18; O2SAT 100
[2023-02-22] MEDS: Ketorolac 30 MG/ML Syringe IV (12:43)
[2023-02-22 12:47] VITALS: BP 125/67; BP 96/60; PULSE 67; RESP 18; TEMP 36.6; O2SAT 100
[2023-02-22 14:31] VITALS: BP 110/56; BP 96/60; PULSE 68; RESP 16; TEMP 36.2; O2SAT 100
[2023-02-22 15:15] LABS: Hematocrit 35.8 % (37-47); Hemoglobin 11.7 g/dL (12.0-15.0); Mean Corp Hgb Conc 32.7 g/dL (32-36); Mean Corpuscular Hgb 31.3 pg (27.0-32.0); Mean Corpuscular Volume 95.7 fL (81-99); Platelet Count 177 K/mm3 (150-450); RBC Distribution Width CV 12.8 % (11.6-14.6); RBC Distribution Width SD 44.7 fl (35.1-43.9); Red Blood Count 3.74 M/mm3 (4.2-5.4); White Blood Count 8.2 K/mm3 (4.4-11.0)
== END 2023-02-22 15:31 | disposition home or self-care (01) ==
LOC: SDC 07:41 → AC 07:42
PROVIDERS: Anesthesiology; PCP Family Medicine; Referring Provider Obstetrics & Gynecology; Visit Provider Obstetrics & Gynecology
PROC: 0UT9FZZ Resection of Uterus, Via Natural or Artificial Opening With Percutaneous Endoscopic Assistance (ICD-10-PCS; CPT 58552; principal; 2023-02-22 09:35)
DX: N95.0 Postmenopausal bleeding (principal); I10 Essential (primary) hypertension; M48.02 Spinal stenosis, cervical region; I25.10 Atherosclerotic heart disease of native coronary artery without angina pectoris; F32.A Depression, unspecified; Z95.5 Presence of coronary angioplasty implant and graft; E78.00 Pure hypercholesterolemia, unspecified; Z79.899 Other long term (current) drug therapy; K21.9 Gastro-esophageal reflux disease without esophagitis; Z79.82 Long term (current) use of aspirin; Z86.2 Personal history of diseases of the blood and blood-forming organs and certain disorders involving the immune mechanism; F41.9 Anxiety disorder, unspecified
CPT/HCPCS: 58552; 00944; 36415; 82962; 83735; 85027; 85610; 85730; 86850; 86900; 86901; 88307; J7120; J2405; J3475

== ENCOUNTER → 2024-09-25 | Outpatient (CLI) | payer OTHER, SELFPAY ==
--- NOTE | 2024-09-25 10:00 | RAD_ITS ---
PROCEDURE: ABDOMEN SINGLE VIEW 09/25/2024 REASON FOR EXAM: ABDOMINAL PAIN, R/O CONSTIPATION TECHNIQUE: Single view abdomen. COMPARISON: None. FINDINGS: There is stool throughout the colon. The bowel gas pattern is otherwise unremarkable. There is a 1.3 cm in diameter calcified splenic artery aneurysm. There are no significant bony abnormalities. RAD/Abdomen Single View IMPRESSION: 1. Mild constipation. 2. Other findings as noted. Reading Location: [id number]
[2024-09-25 10:11] LABS: Absolute Lymphocyte Count 0.92 X10^3/uL (0.83-4.51); Absolute Neutrophil Count 4.5 X10^3/uL (2.0-7.7); Basophil# 0.04 X10^3/uL; Basophil% 0.7 % (0-1); Eosinophil# 0.04 X10^3/uL; Eosinophils% 0.7 % (0-5); Hematocrit 39.5 % (37-47); Hemoglobin 13.6 g/dL (12.0-15.0); Lymphocyte # 0.92 X10^3/ul (0.83-4.51); Lymphocyte % 15.2 % (19-41); Mean Corp Hgb Conc 34.4 g/dL (32-36); Mean Corpuscular Hgb 31.3 pg (27.0-32.0); Mean Corpuscular Volume 90.8 fL (81-99); Mean Platelet Vol. 10.6 fl (6.2-12.0); Monocyte# 0.57 X10^3/uL; Monocyte% 9.4 % (0-10); NRBC Flagged by Analyzer 0 % (0-5); Neutrophil # 4.48 X10^3/uL (2.7-7.7); Neutrophil % 73.7 % (47-70); Platelet Count 242 K/mm3 (150-450); RBC Distribution Width CV 12.7 % (11.6-14.6); RBC Distribution Width SD 42.3 fl (35.1-43.9); Red Blood Count 4.35 M/mm3 (4.2-5.4); White Blood Count 6.1 K/mm3 (4.4-11.0)
[2024-09-25 11:07] LABS: AST(SGOT) 24 U/L (<=31); Alanine Aminotransfer ALT/SGPT 24 U/L (<=34); Albumin, Serum 4.7 g/dL (3.5-5.0); Alkaline Phosphatase 80 U/L (35-104); Anion Gap 12 (5-15); BUN 12 mg/dL (4-19); BUN/Creat Ratio 12.2 RATIO (10-20); Calcium,Total 9.6 mg/dL (7.6-11.0); Carbon Dioxide 24.9 mmol/L (21.0-32.0); Chloride 104 mmol/L (98-108); Creatinine, Serum 0.97 mg/dL (0.70-1.20); EST Glomerular Filtration Rate 68 (>60); Globulin 2.3 g/dL (2.2-4.2); Glucose 96 mg/dL (70-99); Potassium 4.3 mmol/L (3.3-5.1); Sodium Level 141 mmol/L (133-145); Total Bilirubin 0.55 mg/dL (0.00-1.30)
== END | disposition home or self-care (01) ==
LOC: LAB 09:26
PROVIDERS: PCP Family Medicine; Referring Provider Nurse Practitioner Acute Care; Visit Provider Nurse Practitioner Acute Care
DX: R10.13 Epigastric pain (principal); K59.00 Constipation, unspecified
CPT/HCPCS: 36415; 74018; 80053; 84443; 85025

== ENCOUNTER 2024-10-03 12:57 | Day surgery (SDC) | payer OTHER, SELFPAY ==
--- NOTE | 2024-09-28 11:02 | PAT.ANESEVAL ---
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 When Was Last Pacemaker Check QUESTION #4 FULL TEXT: You/Your Family Experience fever (hyperthermia) with Anesthesia Last Oral Intake Last Oral intake: Last Oral Intake NPO since Meds taken in AM with sips of water? Meds patient instructed to take am of surgery PONV PONV - parking meter mechanic: PONV - parking meter mechanic Female Yes 09/28/24 10:21 HX of Motion Sickness Yes 09/28/24 10:21 HX of N/V After Surgery No 09/28/24 10:21 Non-Smoker Yes 09/28/24 10:21 Duration of Surgery greater No 09/28/24 10:21 than 60 minutes Number of Risk Factors 3 09/28/24 10:21 PONV Score Moderate Risk 09/28/24 10:21 Height & Weight Height & Weight: Anesthesia: Height & Weight Height 5 ft 8 in 09/25/24 09:03 Respiratory Assessment Respiratory Assessment - parking meter mechanic: Respiratory Tract Infection Hx - parking meter mechanic Hx Respiratory Tract Infection No 09/28/24 10:21 STOP Sleep Apnea STOP Sleep Apnea - parking meter mechanic: STOP Sleep Apnea - parking meter mechanic Hx Hypertension Yes: CONTROLLED WITH MED 09/28/24 10:21 Hx Sleep Apnea No 09/28/24 10:21 CPAP No 02/22/23 12:07 BIPAP No 02/10/23 09:14 Do you snore loudly (louder No 09/28/24 10:21 than talking or can be heard Do you often feel tired/ Yes 09/28/24 10:21 fatigued/ sleepy during daytime? Has anyone observed you stop No 09/28/24 10:21 breathing during sleep? STOP Results Positive 09/28/24 10:21 QUESTION #5 FULL TEXT : Do you snore loudly (louder than talking or can be heard through closed doors)? 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 Specify any problems Hx of Preganancy in last 3 No 09/28/24 10:21 Months Nurse Filling Out Transfusion DSCHRIBER 09/28/24 10:21 & Questions: Date: 09/28/24 09/28/24 10:21 Time: 10:22 09/28/24 10:21 Patient unable to answer at this time (ie. confused, unrespo /Reproduction History /Reproductive History - parking meter mechanic: /Reproductive Hx- parking meter mechanic Hx Now No 09/28/24 10:21 Gestational Age (in weeks): EDC: Hx Hx Para Hx Section SAB No 09/28/24 10:21 [facility] Medical History (Updated 09/28/24 @ 10:35 by Yajaira Johnson) Wears partial dentures Injury of head and neck Pain in the abdomen Hoarseness History of echocardiogram Splenic artery aneurysm Depression Arthritis Syncope History of stress test History of trigger finger Wears contact lenses Post-menopausal Anemia High cholesterol Gastric reflux Non-smoker Cardiology follow-up encounter History of angina Breast cancer, right Presence of stent in coronary artery (~09/21/13) Atherosclerotic heart disease of [place] coronary artery without angina pectoris Hypertension Anxiety Home Medications ?Medication ?Instructions ?Recorded ?Last Taken ?Type aspirin 81 mg chewable tablet 81 mg PO DAILY 06/18/14 02/21/23 History multivitamin with folic acid 400 1 tab PO DAILY 06/18/14 Unknown History mcg tablet omega-3 fatty acids-fish oil 340 3 ea PO DAILY 06/18/14 09/20/24 History mg-1,000 mg capsule atorvastatin 80 mg tablet (Lipitor) 80 mg PO QDAY 08/18/17 Unknown History calcium carbonate (Calcium 500) 500 mg PO DAILY 08/18/17 Unknown History ferrous sulfate 325 mg (65 mg 325 mg PO DAILY 10/02/19 Unknown History iron) tablet glucosamine-chondroitin 250 mg-200 2 tab PO DAILY 11/06/20 Unknown History mg tablet (Osteo Bi-Flex) nitroglycerin 0.4 mg sublingual 0.4 mg sublingual Q5-15M PRN Chest 12/03/22 Unknown Rx tablet Pain #25 tabs amlodipine 5 mg tablet 5 mg PO DAILY #90 tabs 01/20/24 Unknown Rx metoprolol tartrate 25 mg tablet 25 mg PO BID #60 tabs 04/09/24 Unknown Rx isosorbide mononitrate 30 mg 30 mg PO DAILY #90 tabs 04/30/24 Unknown Rx tablet,extended release 24 hr omeprazole magnesium 20 mg 40 mg PO BID 09/25/24 Unknown History tablet,delayed release (Prilosec OTC) ondansetron HCl 4 mg tablet 4 mg PO Q8H PRN nausea and vomiting 09/25/24 Unknown History polyethylene glycol 3350 17 4 g PO PRN PRN constipation 09/25/24 Unknown History gram/dose oral powder (Miralax) linaclotide 145 mcg capsule 145 mcg PO QAM #30 caps 09/27/24 Unknown Rx (Linzess) alprazolam 0.5 mg tablet 0.5 mg PO TID PRN PRN anxiety 09/28/24 Unknown History Allergy/AdvReac Type Severity Reaction Status Date / Time metoclopramide (From Reglan) Allergy Mild hyper Verified 09/28/24 10:17 codeine Allergy Hives Verified 09/28/24 10:17 lisinopril AdvReac Unknown Cough Verified 09/28/24 10:17 lovastatin AdvReac Unknown Unknown Verified 09/28/24 10:17 Family History Mother Heart disease Hypertension CVA (cerebral vascular accident) Parkinsons Seizures Father COPD (chronic obstructive pulmonary disease) Hypertension Surgical History (Updated 09/28/24 @ 10:35 by Yajaira Johnson) History of heart surgery History of LAVH History of cardiac catheterization History of hysteroscopy History of left heart catheterization (LHC) (~05/19/21) H/O dilation and curettage History of partial mastectomy of right breast History of endometrial ablation H/O lumpectomy Social History Smoking Status: Never smoker alcohol intake: never substance use type: does not use caffeine: Yes what type of physical activity do you participate in: walking frequency: 5-6 times per week seatbelt use: always do you feel safe at home: Yes additional social history: - [employer] Audit: Pertinent Findings Pertinent Findings EKG Perinent findings: 12/03/2022. Normal sinus rhythm. 61 bpm. Normal EKG. Echo (EF%) pertinent findings: 11/20/2020. EF 60%. Consult pertinent findings: Cardiology 09/08/2023. Presence of coronary artery stent. 2013. Continue current medications. Hypertension. Well-controlled on multiple medications. Recommendation Anesthesia Recommendation Anesthesia recommendation: OPTIMIZED for anesthesia
[2024-10-03] VITALS (7 sets, daily range): BP systolic 91–113; BP diastolic 53–64; PULSE 61–70; RESP 16; TEMP 36.2–36.8; O2SAT 100; BMI 23.4
--- NOTE | 2024-10-03 13:20 | PCM.HP.STD ---
HPI - General General Date of Admission: 10/03/24 Date of Service: 10/03/24 Chief Complaint: weight loss and abdominal pain HPI Narrative EMILIANO DAVIS, is a 54 F who presents for the evaluation of Chief Complaint: weight loss - epigastric pain with eating for the past 4-6 months, worse over the past 6 weeks it just hurts denies any radiation - reports for a few months she had to take a Xanax before each meal to eat - helped relax her stomach so she could eat - nausea in the morning and dry heaves, denies any emesis - 10lbs weight loss in the past 6 weeks, 30lbs total in the past 6 months - she is taking sucralfate every morning - liquids can cause more pain than solids - carafate helps some x5 days, but causes food to taste terrible - Omeprazole increased to 40mg 5 days ago - ondansetron causes fatigue and cannot function - c/o dry mouth - denies any dysphagia - occ. heartburn - weight loss - stomach hurts so bad she cannot eat - pain worse with switching to Effexor, discontinued Effexor 37.5mg and is still having pain - stopped bupropion 2 days ago - Miralax daily - Reglan causes her to feel jittery - was on this in the past post-op - night sweats started with bupropion and continues - but just stopped 2 days ago - urinating almost constantly, in the past couple weeks, reports she was up every 15-20 minutes last night - not urinating as frequently during the day - denies any hematuria or dysuria - denies any imaging or labs - she is not diabetic - reports she is very constipated coming out like rabbit pellets for the past 2-3 weeks - she has a BM - very small, maybe a couple times a week - started Miralax yesterday - reports a long history of constipation, but states stools have never been this small and hard - Colon 2019, negative per patient - Sumit/Jose Guadalupe - denies any bleeding - denies any family h/o colon CA - denies any h/o EGD [facility] Medical History Wears partial dentures Injury of head and neck Pain in the abdomen Hoarseness History of echocardiogram Splenic artery aneurysm Depression Arthritis Syncope History of stress test History of trigger finger Wears contact lenses Post-menopausal Anemia High cholesterol Gastric reflux Non-smoker Cardiology follow-up encounter History of angina Breast cancer, right Presence of stent in coronary artery (~09/21/13) Atherosclerotic heart disease of [place] coronary artery without angina pectoris Hypertension Anxiety Home Medications ?Medication ?Instructions ?Recorded ?Last Taken ?Type aspirin 81 mg chewable tablet 81 mg PO DAILY 06/18/14 02/21/23 History multivitamin with folic acid 400 1 tab PO DAILY 06/18/14 Unknown History mcg tablet omega-3 fatty acids-fish oil 340 3 ea PO DAILY 06/18/14 09/20/24 History mg-1,000 mg capsule atorvastatin 80 mg tablet (Lipitor) 80 mg PO QDAY 08/18/17 Unknown History calcium carbonate (Calcium 500) 500 mg PO DAILY 08/18/17 Unknown History ferrous sulfate 325 mg (65 mg 325 mg PO DAILY 10/02/19 Unknown History iron) tablet glucosamine-chondroitin 250 mg-200 2 tab PO DAILY 11/06/20 Unknown History mg tablet (Osteo Bi-Flex) nitroglycerin 0.4 mg sublingual 0.4 mg sublingual Q5-15M PRN Chest 12/03/22 Unknown Rx tablet Pain #25 tabs amlodipine 5 mg tablet 5 mg PO DAILY #90 tabs 01/20/24 Unknown Rx metoprolol tartrate 25 mg tablet 25 mg PO BID #60 tabs 04/09/24 Unknown Rx isosorbide mononitrate 30 mg 30 mg PO DAILY #90 tabs 04/30/24 Unknown Rx tablet,extended release 24 hr omeprazole magnesium 20 mg 40 mg PO BID 09/25/24 Unknown History tablet,delayed release (Prilosec OTC) ondansetron HCl 4 mg tablet 4 mg PO Q8H PRN nausea and vomiting 09/25/24 Unknown History polyethylene glycol 3350 17 4 g PO PRN PRN constipation 09/25/24 Unknown History gram/dose oral powder (Miralax) linaclotide 145 mcg capsule 145 mcg PO QAM #30 caps 09/27/24 Unknown Rx (Linzess) alprazolam 0.5 mg tablet 0.5 mg PO TID PRN PRN anxiety 09/28/24 Unknown History Allergy/AdvReac Type Severity Reaction Status Date / Time metoclopramide (From Reglan) Allergy Mild hyper Verified 09/28/24 10:17 codeine Allergy Hives Verified 09/28/24 10:17 lisinopril AdvReac Unknown Cough Verified 09/28/24 10:17 lovastatin AdvReac Unknown Unknown Verified 09/28/24 10:17 Family History Mother Heart disease Hypertension CVA (cerebral vascular accident) Parkinsons Seizures Father COPD (chronic obstructive pulmonary disease) Hypertension Surgical History History of heart surgery History of LAVH History of cardiac catheterization History of hysteroscopy History of left heart catheterization (LHC) (~05/19/21) H/O dilation and curettage History of partial mastectomy of right breast History of endometrial ablation H/O lumpectomy Social History Smoking Status: Never smoker alcohol intake: never substance use type: does not use caffeine: Yes what type of physical activity do you participate in: walking frequency: 5-6 times per week seatbelt use: always do you feel safe at home: Yes additional social history: - [employer] ROS Constitutional Constitutional: Denies fatigue, fever(s), poor appetite, weight gain or weight loss Gastrointestinal Gastrointestinal: Denies belching, bloating, change in bowel habits, change in stool character, chewing difficulty, coffee ground emesis, constipation, cramping, diarrhea, dyspepsia, dysphagia, early satiety, excessive flatus, fecal incontinence, heartburn, hematemesis, hematochezia, hemorrhoids, loose stools, melena, nausea, odynophagia, rectal bleeding, tenesmus, vomiting or weight changes Physical Exam Const alert, oriented x3, no apparent distress and healthy appearing General Appearance: cooperative GI normal to inspection, nondistended, normoactive bowel sounds, soft to palpation, non-tender and non-distended Percussion: normal to percussion Rectal Exam: deferred Assessment & Plan Assessment/Plan (1) Weight loss: (2) Epigastric pain: (3) Constipation: PLAN: Assessment and Plan Assessment and Plan (1) Epigastric pain: Status: Acute (2) Constipation: Status: Acute (3) Weight loss: Status: Acute Orders: Orders CBC W/Diff, Automated Today K59.00 - Constipation, unspecified, R10.13 - Epigastric pain Comprehensive Metabolic Profil Today K59.00 - Constipation, unspecified, R10.13 - Epigastric pain Thyroid Stim Hormone (TSH) Today K59.00 - Constipation, unspecified, R10.13 - Epigastric pain Abdomen Single View Today K59.00 - Constipation, unspecified, R10.13 - Epigastric pain Plan 54-year-old female presents for initial consultation with complaints of epigastric abdominal pain, nausea, and dry heaves x6 months. She has difficulty describing pain, reporting, it just hurts. She denies any radiation of pain. She endorses a 10lb weight loss in the past six weeks with exacerbation of symptoms and a total weight loss of 30lbs in the past 6 months. She reports she was taking xanax before meals to alleviate pain. She reports worsening of epigastric pain with escitalopram and bupropion, she has discontinued and pain persists. She does note minimal improvement with increasing Omeprazole to 40mg daily and adding sucralfate <1 week ago. I have ordered labs and scheduled her for an EGD. She complains of chronic constipation which has worsened over the past 6 weeks with decreased PO intake. She reports a colonoscopy was negative in 2019. She started Miralax yesterday. I have ordered a KUB and will make recommendations regarding constipation pending findings. 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 Sound-alike and misspelled words, as well as other regional company flatbed truck driver errors may be contained in the documentation. Patient Instructions: Complete labs and KUB today EGD Will make recommendations for constipation pending x-ray findings Follow-up with PCP for c/o urinary frequency
--- NOTE | 2024-10-03 13:30 | EGD_PTH ---
PATIENT: EMILIANO DAVIS LOC: EN U#:[id number] AGE/SX: 54/F ROOM: RE10/03/[address]: Dr. Drew Garner DO : 1970 BED: DIS: 10/03/2024 SPEC #: [id number] RECD: 10/04/24 07:37 STATUS: SHERICE REKanu #: [id number] MYA: 10/03/24 13:[address]: Drew Garner DEPT: SURGICAL PATHOLOGY RECD BY: Karan Quintana ENTERED: 10/04/24 12:03 SP TYPE: EGD BIOPSY OT DR: Dr. Dante De La O MD Tissues: A - Gastric mucous membrane B - Duodenum, NOS Procedures: Immunohistochemical Stains Surgery Specimen Level IV Comments: @ Specimen number changed from [id number] to [id number] @ on 10/04/24 at 1204 by NATHALY. HEADER OPERATION: EGD with biopsy PRE-OP DIAGNOSIS: Weight loss, epigastric pain, constipation TISSUE SUBMITTED: A- Gastric body biopsy, B- Duodenum biopsy MICROSCOPIC DIAGNOSIS A. Stomach, body, biopsy: * Oxyntic mucosa with features of reactive gastropathy. * Superficial mucosal pigment, positive for iron (iron special stain) - see note. * IHC negative for H pylori organisms. * Note: Mucosal iron is suggestive of ingestion of iron-containing compound. B. Duodenum, biopsy: * Normal villous architecture with focal slight increase of intraepithelial lymphocytes - see note. * Note: This pattern of injury is etiologically nonspecific?and the differential diagnosis includes sensitivity to gluten and non-gluten proteins, small intestinal bacterial overgrowth, stasis related changes, infection, protein calorie malnutrition, tropical sprue, and medication injury (NSAIDs, Olmesartan / Benicar, Mycophenolic acid, Idelalisib, for example). If celiac disease is a clinical concern, additional clinical studies, such as tTG-IgA, are recommended. MICROSCOPIC DESCRIPTION Slides are reviewed. All matched controls reacted appropriately. These tests were developed and their performance characteristics determined by [facility]. They may not have been cleared or approved by the U.S. Food and Drug Administration. The FDA has determined that such clearance or approval is not necessary. The above immunohistochemical/dualISH markers are viewed by the Pathologist. GROSS DESCRIPTION Received in 2 formalin containers labeled the patient's name and date of . Designated as: A. Gastric body BX for H. pylori and path are 3 rivera tissue fragments, <0.1 cm to 0.5 cm. Entirely submitted in 1 cassette. Smaller fragments may not survive processing. B. Duodenum BX are 3 rivera tissue fragments, 0.1 cm to 0.4 cm admixed with minimal flocculent material. Entirely submitted in [address] [facility] 10/04/2024 CPT:03829o9,61322, 06728
--- NOTE | 2024-10-03 13:40 | PCM.PRE.AN2 ---
ASA Classification* ASA Classification ASA Classification: 3 Assessment & Plan Anesthesia* Anesthesia Assessment Anesthesia Assessment: Discussed sedation and/or anesthesia options, risks, benefits, and alternatives with patient/parents/legal guardian/POA. Questions invited. The patient/parents/legal guardian/POA seems to understand and agrees to proceed with anesthesia plan. Reviewed the physical assessment, medical history, allergy history and patient home medications list prior to surgery/procedure/anesthetic and documented any changes. Performed airway and anesthesia risk assessments. Anesthesia Type Anesthesia Type: MAC Anesthesia Focused Assessment* Airway Assessment Mouth opens: >3 cm Mallampati Score: II Labs Anesthesia Preop lab: CBC WBC 6.1 K/mm3 (4.4-11.0) 09/25/24 09:09/25/24 RBC 4.35 M/mm3 (4.2-5.4) 09/25/24 09:09/25/24 Hgb 13.6 g/dL (12.0-15.0) 09/25/24 09:09/25/24 Hct 39.5 % (37-47) 09/25/24 09:09/25/24 Plt Count 242 K/mm3 (150-450) 09/25/24 09:09/25/24 CHEMISTRY Potassium 4.3 mmol/L (3.3-5.1) 09/25/24 09:32 09/25/24 Sodium 141 mmol/L (133-145) 09/25/24 09:09/25/24 Magnesium 2.3 mg/dL (1.6-2.6) 02/14/23 13:29 02/14/23 BUN 12 mg/dL (4-19) 09/25/24 09:09/25/24 Creatinine 0.97 mg/dL (0.70-1.20) 09/25/24 09:09/25/24 Glucose 96 mg/dL (70-99) 09/25/24 09:09/25/24 POC Glucose 92 mg/dL (74-106) 02/22/23 08:08 02/22/23 TSH 2.880 uIU/mL (0.300-4.200) 09/25/24 09:32 09/25/24 COAG PT 13.3 SECONDS (11.7-14.9) 02/14/23 13:29 02/14/23 Urine Test Negative Negative 05/19/21 08:34 05/19/21 Pre-Assessment Diagnosis/Proposed Procedure Planned Operative Procedure(s): EGD Anesthesia History 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 When Was Last Pacemaker Check QUESTION #4 FULL TEXT: You/Your Family Experience fever (hyperthermia) with Anesthesia Last Oral Intake Last Oral intake: Last Oral Intake NPO since Meds taken in AM with sips of water? Meds patient instructed to take am of surgery PONV PONV - solar installer pv: PONV - solar installer pv Female Yes 09/28/24 10:21 HX of Motion Sickness Yes 09/28/24 10:21 HX of N/V After Surgery No 09/28/24 10:21 Non-Smoker Yes 09/28/24 10:21 Duration of Surgery greater No 09/28/24 10:21 than 60 minutes Number of Risk Factors 3 09/28/24 10:21 PONV Score Moderate Risk 09/28/24 10:21 Height & Weight Height & Weight: Anesthesia: Height & Weight Height 5 ft 8 in 09/25/24 09:03 Respiratory Assessment Respiratory Assessment - solar installer pv: Respiratory Tract Infection Hx - solar installer pv Hx Respiratory Tract Infection No 09/28/24 10:21 STOP Sleep Apnea STOP Sleep Apnea - solar installer pv: STOP Sleep Apnea - solar installer pv Hx Hypertension Yes: CONTROLLED WITH MED 09/28/24 10:21 Hx Sleep Apnea No 09/28/24 10:21 CPAP No 02/22/23 12:07 BIPAP No 02/10/23 09:14 Do you snore loudly (louder No 09/28/24 10:21 than talking or can be heard Do you often feel tired/ Yes 09/28/24 10:21 fatigued/ sleepy during daytime? Has anyone observed you stop No 09/28/24 10:21 breathing during sleep? STOP Results Positive 09/28/24 10:21 QUESTION #5 FULL TEXT : Do you snore loudly (louder than talking or can be heard through closed doors)? Tobacco Use History Tobacco Use History - solar installer pv: Tobacco Use History - solar installer pv Tobacco Use Smoking Status Never smoker 09/28/24 10:21 Hx Tobacco Use No 09/28/24 10:21 Years Smoking Packs Smoked per Day Smoking Cessation Date was within the last 15 years Hx Smoking Cessation Date Hx Smoking Cessation Counseling Hematologic Medial History Hematologic Hx - solar installer pv: Hematologic Medical Hx - closing coordinator Hx of Blood Transfusion No 09/28/24 10:21 Hx of Transfusion in last 3 No 09/28/24 10:21 Months Date of Last Transfusion (if within last 3 months) Ever experience any problems No 09/28/24 10:21 with transfusion(s)? Specify any problems Hx of Preganancy in last 3 No 09/28/24 10:21 Months Nurse Filling Out Transfusion DSCHRIBER 09/28/24 10:21 & Questions: Date: 09/28/24 09/28/24 10:21 Time: 10:22 09/28/24 10:21 Patient unable to answer at this time (ie. confused, unrespo /Reproduction History /Reproductive History - solar installer pv: /Reproductive Hx- solar installer pv Hx Now No 09/28/24 10:21 Gestational Age (in weeks): EDC: Hx Hx Para Hx Section SAB No 09/28/24 10:21 Active Medications Active Medications: Current Medications Generic Name Dose Route Start Last Admin Trade Name Freq PRN Reason Stop Dose Admin Lactated Ringer's 1,000 mls @ 15 mls/hr 10/03/24 13:15 IV .Q48H RUBEN PFSH Medical History Wears partial dentures Injury of head and neck Pain in the abdomen Hoarseness History of echocardiogram Splenic artery aneurysm Depression Arthritis Syncope History of stress test History of trigger finger Wears contact lenses Post-menopausal Anemia High cholesterol Gastric reflux Non-smoker Cardiology follow-up encounter History of angina Breast cancer, right Presence of stent in coronary artery (~09/21/13) Atherosclerotic heart disease of [place] coronary artery without angina pectoris Hypertension Anxiety Home Medications ?Medication ?Instructions ?Recorded ?Last Taken ?Type aspirin 81 mg chewable tablet 81 mg PO DAILY 06/18/14 02/21/23 History multivitamin with folic acid 400 1 tab PO DAILY 06/18/14 Unknown History mcg tablet omega-3 fatty acids-fish oil 340 3 ea PO DAILY 06/18/14 09/20/24 History mg-1,000 mg capsule atorvastatin 80 mg tablet (Lipitor) 80 mg PO QDAY 08/18/17 Unknown History calcium carbonate (Calcium 500) 500 mg PO DAILY 08/18/17 Unknown History ferrous sulfate 325 mg (65 mg 325 mg PO DAILY 10/02/19 Unknown History iron) tablet glucosamine-chondroitin 250 mg-200 2 tab PO DAILY 11/06/20 Unknown History mg tablet (Osteo Bi-Flex) nitroglycerin 0.4 mg sublingual 0.4 mg sublingual Q5-15M PRN Chest 12/03/22 Unknown Rx tablet Pain #25 tabs amlodipine 5 mg tablet 5 mg PO DAILY #90 tabs 01/20/24 Unknown Rx metoprolol tartrate 25 mg tablet 25 mg PO BID #60 tabs 04/09/24 Unknown Rx isosorbide mononitrate 30 mg 30 mg PO DAILY #90 tabs 04/30/24 Unknown Rx tablet,extended release 24 hr omeprazole magnesium 20 mg 40 mg PO BID 09/25/24 Unknown History tablet,delayed release (Prilosec OTC) ondansetron HCl 4 mg tablet 4 mg PO Q8H PRN nausea and vomiting 09/25/24 Unknown History polyethylene glycol 3350 17 4 g PO PRN PRN constipation 09/25/24 Unknown History gram/dose oral powder (Miralax) linaclotide 145 mcg capsule 145 mcg PO QAM #30 caps 09/27/24 Unknown Rx (Linzess) alprazolam 0.5 mg tablet 0.5 mg PO TID PRN PRN anxiety 09/28/24 Unknown History Allergy/AdvReac Type Severity Reaction Status Date / Time metoclopramide (From Reglan) Allergy Mild hyper Verified 09/28/24 10:17 codeine Allergy Hives Verified 09/28/24 10:17 lisinopril AdvReac Unknown Cough Verified 09/28/24 10:17 lovastatin AdvReac Unknown Unknown Verified 09/28/24 10:17 Family History Mother Heart disease Hypertension CVA (cerebral vascular accident) Parkinsons Seizures Father COPD (chronic obstructive pulmonary disease) Hypertension Surgical History History of heart surgery History of LAVH History of cardiac catheterization History of hysteroscopy History of left heart catheterization (LHC) (~05/19/21) H/O dilation and curettage History of partial mastectomy of right breast History of endometrial ablation H/O lumpectomy Social History Smoking Status: Never smoker alcohol intake: never substance use type: does not use caffeine: Yes what type of physical activity do you participate in: walking frequency: 5-6 times per week seatbelt use: always do you feel safe at home: Yes additional social history: - [employer] Com[employer] Review of Systems (Anesthesia) ROS Narrative System reviewed and no additional complaints, except as documented.
[2024-10-03] MEDS: Lactated Ringers 1,000 ML 15 ML IV (13:45)
--- NOTE | 2024-10-03 14:55 | OP.EGD_ITS ---
Patient Name: Annabel Mccray Procedure Date: 10/03/2024 2:32 PM Date of : 1970 Age: 54 Procedure: Upper GI endoscopy Indications: Epigastric abdominal pain, Functional Dyspepsia Providers: Drew Garner DO Referring MD: Dante De La O Medicines: Monitored Anesthesia Care Patient Profile: This is a 54 year old female. Refer to note in patient chart for documentation of history and physical. Patient has symptoms of chronic epigastric abdominal pain, chronic dyspepsia and chronic nausea. Complications: No immediate complications. Procedure: Pre-Anesthesia Assessment: - Prior to the procedure, a History and Physical was performed, and patient medications and allergies were reviewed. The patient is competent. The risks and benefits of the procedure and the sedation options and risks were discussed with the patient. All questions were answered and informed consent was obtained. Patient identification and proposed procedure were verified by the physician in the pre-procedure area. Mental Status Examination: alert and oriented. Airway Examination: normal oropharyngeal airway and neck mobility. Respiratory Examination: clear to auscultation. CV Examination: normal. Prophylactic Antibiotics: The patient does not require prophylactic antibiotics. Prior Anticoagulants: The patient has taken no anticoagulant or antiplatelet agents except for NSAID medication. ASA Grade Assessment: II - A patient with mild systemic disease. After reviewing the risks and benefits, the patient was deemed in satisfactory condition to undergo the procedure. The anesthesia plan was to use monitored anesthesia care (MAC). Immediately prior to administration of medications, the patient was re-assessed for adequacy to receive sedatives. The heart rate, respiratory rate, oxygen saturations, blood pressure, adequacy of pulmonary ventilation, and response to care were monitored throughout the procedure. The physical status of the patient was re-assessed after the procedure. After obtaining informed consent, the endoscope was passed under direct vision. Throughout the procedure, the patient's blood pressure, pulse, and oxygen saturations were monitored continuously. The gastroscope was introduced through the mouth, and advanced to the third part of the duodenum. Small bowel enteroscopy was deemed necessary. The upper GI endoscopy was accomplished without difficulty. The patient tolerated the procedure well. Scope In: 2:44:42 PM Scope Out: 2:46:51 PM Total Procedure Duration Time 0 hours 2 minutes 9 seconds Findings: The examined esophagus was normal. Patchy moderate inflammation characterized by erosions, erythema and friability was found in the gastric body and in the gastric antrum. Biopsies were taken with a cold forceps for histology. Verification of patient identification for the specimen was done. Estimated blood loss was minimal. Patchy mildly erythematous mucosa without active bleeding and with no stigmata of bleeding was found in the duodenal bulb and in the first portion of the duodenum. Biopsies were taken with a cold forceps for histology. Verification of patient identification for the specimen was done. Estimated blood loss was minimal. Impression: - Normal esophagus. - Bile gastritis. Biopsied. - Erythematous duodenopathy. Biopsied. Recommendation: - Discharge patient to home. - Resume previous diet. - Continue present medications. - Await pathology results. Procedure Code(s): --- Professional --- 17691, Small intestinal endoscopy, enteroscopy beyond second portion of duodenum, not including ileum; with biopsy, single or multiple CPT copyright 2021 [employer]. All rights reserved. The codes documented in this report are preliminary and upon steward/stewardess tourist class review may be revised to meet current compliance requirements. Drew Garner DO 10/03/2024 2:55:09 PM This report has been signed electronically. Number of Addenda: 0 Note Initiated On: 10/03/2024 2:32 PM
--- NOTE | 2024-10-03 14:55 | OP.CCLET_ITS ---
10/03/2024 Dante De La O Re : Upper GI endoscopy procedure for Annabel Chirinos Jairon This procedure was performed on Thursday, October 03, 2024. My impressions and recommendations are as follows: Impressions : - Normal esophagus. - Bile gastritis. Biopsied. - Erythematous duodenopathy. Biopsied. Recommendations : - Discharge patient to home. - Resume previous diet. - Continue present medications. - Await pathology results. My findings are described in the full procedure note, which is enclosed. If I can be of further assistance, please feel free to contact me at . Sincerely, Drew Garner, 10/03/2024 2:55:09 PM This report has been signed electronically.
--- NOTE | 2024-10-03 15:01 | PCM.POST.ANE ---
Anesthesia: Postop Eval I Current Vital Signs Temperature: 98.2 F Pulse Rate: 68 Blood Pressure: 91/53 Respiratory Rate: 16 Pulse Ox: 100 Oxygen Delivery Method: Room Air Assessment Airway patent: Yes Spontaneous unlabored respirations: Yes Mental status: Awake and Calm nausea: No Vomiting: No Anesthesia Complication: No Fluid Hydration Crystalloid volume administer (ml): 300 Total IV fluid infused: 300 Progress Note Anesthesia document: Postop Eval 1 completed: Yes
--- NOTE | 2024-10-03 15:29 | PCM.POSTANE2 ---
Anesthesia Postop Eval I Sum Postop Eval Completion status Anesthesia document: Postop Eval 1 completed: Yes Anesthesia Postop Eval I Summary Anesthesia Postop Eval I Summary: Anesthesia Postop Eval I: Assessment Summary Airway patent Yes 10/03/24 15:02 [email or web address] Spontaneous unlabored Yes 10/03/24 15:02 [email or web address] respirations Mental status Awake,Calm 10/03/24 15:02 [email or web address] nausea No 10/03/24 15:02 [email or web address] Vomiting No 10/03/24 15:02 [email or web address] Anesthesia Postop Eval I: Fluid Summary Crystalloid volume administer 300 10/03/24 15:02 [email or web address] (ml) Colloids volume administered ( ml) Blood Product volume administered (ml) Total IV fluid infused 300 10/03/24 15:02 [email or web address] Anesthesia Postop Eval I: Summary Notes Anesthesia Complication No 10/03/24 15:02 [email or web address] Anesthesia Complication Comment: Post-operative progress note Anesthesia: Postop Eval II Evaluation Mental status: Awake Pain Level: 0 nausea: No Vomiting: No
== END 2024-10-03 15:30 | disposition home or self-care (01) ==
LOC: EN 12:58 → AC 13:00
PROVIDERS: PCP Family Medicine; Referring Provider Family Medicine; Visit Provider Internal Medicine Gastroenterology
PROC: 0DJ08ZZ Inspection of Upper Intestinal Tract, Via Natural or Artificial Opening Endoscopic (ICD-10-PCS; CPT 43235; principal; 2024-10-03 14:10)
DX: K29.70 Gastritis, unspecified, without bleeding (principal); K59.00 Constipation, unspecified; E78.00 Pure hypercholesterolemia, unspecified; I10 Essential (primary) hypertension; I25.10 Atherosclerotic heart disease of native coronary artery without angina pectoris; K21.9 Gastro-esophageal reflux disease without esophagitis; R63.4 Abnormal weight loss; Z79.899 Other long term (current) drug therapy; K22.10 Ulcer of esophagus without bleeding; Z95.5 Presence of coronary angioplasty implant and graft
CPT/HCPCS: 43239; 88305; 88342; J2405

== ENCOUNTER → 2024-10-22 | Outpatient (CLI) | payer OTHER, SELFPAY ==
--- NOTE | 2024-10-22 16:47 | CT_ITS ---
PROCEDURE: CTA ABD/PELVIS W/WO CONTRAST 10/22/2024 REASON FOR EXAM: POST PRANDIAL ABD PAIN, R/O MESENTERIC ISCHEMIA TECHNIQUE: CTA ABD/PELVIS W/WO CONTRAST Multiplanar Sagittal and Coronal images were obtained. CONTRAST: Isovue 370 VOLUME: 100 mL One or more dose reduction techniques were used (e.g., Automated exposure control, adjustment of the mA and/or kV according to patient size, use of iterative reconstruction technique). RADIATION DOSE SUMMARY: CTDlvol: 20 mGy DLP: 314 mGycm COMPARISON: No FINDINGS: At the left base, pleural-based nodular density favoring pleural tag. Clear lungs. Normal heart size. Normal gallbladder, liver, pancreas, spleen, adrenal glands, kidneys. No hydronephrosis or ureteral stone. Normal bladder. Status post hysterectomy. No retroperitoneal or pelvic adenopathy. No free air. Nondistended bowel. Normal appendix. Diverticulosis. No acute large bowel findings. No acute abdominal wall findings. Lumbar spine degeneration. Unremarkable aortoiliac system. A few calcified plaque. Patent branch vessels. There is a rim calcified splenic artery aneurysm, series 2, image 38, measuring up to 14 mm. There is proximal celiac axis moderate stenosis, series 601 images 24/25, with calcified plaque and poststenotic dilatation, celiac axis measures up to [address]/CTA Abd/Pelvis W/WO Contrast IMPRESSION: Calcified plaque, origin of celiac axis, causing moderate stenosis, with postst enotic dilatation. 14 mm rim calcified splenic artery aneurysm. No acute findings. Reading Location: [place] [id number]
== END | disposition home or self-care (01) ==
LOC: CT 16:43
PROVIDERS: PCP Family Medicine; Referring Provider Nurse Practitioner Acute Care; Visit Provider Nurse Practitioner Acute Care
DX: I72.8 Aneurysm of other specified arteries (principal); R63.4 Abnormal weight loss; R10.13 Epigastric pain; I25.10 Atherosclerotic heart disease of native coronary artery without angina pectoris
CPT/HCPCS: 74174; Q9967; A4216

== ENCOUNTER → 2024-10-24 | Outpatient (CLI) | payer OTHER, SELFPAY ==
--- NOTE | 2024-10-24 07:48 | US_ITS ---
PROCEDURE: ABDOMEN LIMITED 10/24/2024 REASON FOR EXAM: RUQ AND EPIGASTRIC PAIN TECHNIQUE: ABDOMEN LIMITED COMPARISON: 09/25/2024 FINDINGS: Liver: Diffusely echogenic suggesting fatty infiltration. Gallbladder: No stones, sludge, wall thickening or tenderness. Gallbladder wall measures 2.8 mm Common bile duct: Normal measuring 3.2 mm. Pancreas: Visualized portions are sonographically unremarkable. Kidneys: The right kidney measures 10.7 x 5.1 x 4.8 cm. Cortical thickness of 1.3 cm. No hydronephrosis, calculi or mass. Spleen: Normal in size and echotexture measuring 11.5 cm. Aorta: IVC: Peritoneal Findings: US/Abdomen Limited IMPRESSION: Fatty liver, otherwise unremarkable abdominal sonogram Reading Location: [id number]
--- NOTE | 2024-10-24 07:48 | US_ITS ---
PROCEDURE: ABDOMEN LIMITED 10/24/2024 REASON FOR EXAM: RUQ AND EPIGASTRIC PAIN TECHNIQUE: ABDOMEN LIMITED COMPARISON: 09/25/2024 FINDINGS: Liver: Diffusely echogenic suggesting fatty infiltration. Gallbladder: No stones, sludge, wall thickening or tenderness. Gallbladder wall measures 2.8 mm Common bile duct: Normal measuring 3.2 mm. Pancreas: Visualized portions are sonographically unremarkable. Kidneys: The right kidney measures 10.7 x 5.1 x 4.8 cm. Cortical thickness of 1.3 cm. No hydronephrosis, calculi or mass. Spleen: Normal in size and echotexture measuring 11.5 cm. Aorta: IVC: Peritoneal Findings: US/Abdomen Limited IMPRESSION: Fatty liver, otherwise unremarkable abdominal sonogram Reading Location: [id number]
== END | disposition home or self-care (01) ==
PROVIDERS: PCP Family Medicine; Referring Provider Nurse Practitioner Acute Care; Visit Provider Nurse Practitioner Acute Care
DX: R10.11 Right upper quadrant pain (principal); R10.13 Epigastric pain; R11.0 Nausea; K59.00 Constipation, unspecified
CPT/HCPCS: 76705

== ENCOUNTER → 2024-11-16 | Outpatient (CLI) | payer OTHER, SELFPAY ==
[2024-11-16 16:04] LABS: Lipase 31 U/L (13-75)
== END | disposition home or self-care (01) ==
LOC: LAB 14:04
PROVIDERS: Obstetrics & Gynecology; PCP Family Medicine; Referring Provider Nurse Practitioner Acute Care; Visit Provider Nurse Practitioner Acute Care
DX: R10.9 Unspecified abdominal pain (principal)
CPT/HCPCS: 36415; 83690

== ENCOUNTER → 2024-11-21 | Outpatient (CLI) | payer OTHER, SELFPAY ==
--- NOTE | 2024-11-21 10:14 | NM_ITS ---
PROCEDURE: HEPATOBILLIARY IMG W/PHARM INT 11/21/2024 REASON FOR EXAM: N/V, WEIGHT LOSS, ABD PAIN TECHNIQUE: Intravenous Choletec with planar imaging of the abdomen. 1.3 mcg Kinevac intravenously approximately 60 minutes after the radiopharmaceutical with additional anterior imaging and a region of interest drawn around the gallbladder to calculate a time-activity curve. RADIOPHARMACEUTICAL: Mebrofenin DOSE 6mCi COMPARISON: None FINDINGS: There is good uptake of the radiopharmaceutical by the liver. Normal gallbladder visualization with the gallbladder identified by 30 minutes. Gallbladder Ejection Fraction: 29 % (Normal is >35%) NM/Hepatobilliary Img w/Pharm Int IMPRESSION: Ejection fraction of 29%. Reading Location: [id number]
--- NOTE | 2024-11-21 10:14 | NM_ITS ---
PROCEDURE: HEPATOBILLIARY IMG W/PHARM INT 11/21/2024 REASON FOR EXAM: N/V, WEIGHT LOSS, ABD PAIN TECHNIQUE: Intravenous Choletec with planar imaging of the abdomen. 1.3 mcg Kinevac intravenously approximately 60 minutes after the radiopharmaceutical with additional anterior imaging and a region of interest drawn around the gallbladder to calculate a time-activity curve. RADIOPHARMACEUTICAL: Mebrofenin DOSE 6mCi COMPARISON: None FINDINGS: There is good uptake of the radiopharmaceutical by the liver. Normal gallbladder visualization with the gallbladder identified by 30 minutes. Gallbladder Ejection Fraction: 29 % (Normal is >35%) NM/Hepatobilliary Img w/Pharm Int IMPRESSION: Ejection fraction of 29%. Reading Location: [id number]
== END | disposition home or self-care (01) ==
LOC: NM 10:10
PROVIDERS: PCP Family Medicine; Referring Provider Nurse Practitioner Acute Care; Visit Provider Nurse Practitioner Acute Care
DX: R10.11 Right upper quadrant pain (principal); R11.0 Nausea; R63.4 Abnormal weight loss
CPT/HCPCS: 78227; A9537; J2805

== ENCOUNTER → 2024-12-25 | Outpatient (CLI) | payer OTHER, SELFPAY ==
--- NOTE | 2024-12-25 08:06 | NM_ITS ---
PROCEDURE: GASTRIC EMPTYING STUDY - 4 HR 12/25/2024 REASON FOR EXAM: NAUSEA, WEIGHT LOSS, EARLY SATIETY COMPARISON: None TECHNIQUE: Procedure Code: [id number] Modality: NM Procedure: GASTRIC EMPTYING STUDY - 4 HR The patient ingested a standard meal of cooked egg whites mixed with butter, toasted white bread, jelly, and water. There was no vomiting postprandially. Anterior and posterior planar images of the upper abdomen were obtained for 1 minute immediately following the meal at 1h, 2h and 4h if more than 10% of the activity persisted within the stomach. Regions of interest were drawn, and a geometric mean was used to calculate a uutk-dtbxxowk-rxdid. RADIOPHARMACEUTICAL: Sulfur colloid DOSE 1.1mCi FINDINGS: Percent activity remaining in stomach: 1 hour 72 % (normal 37-90%) 2 hours: 48 % (normal 30-60%) 4 hours: 10 % (normal 0-10%) NM/Gastric Emptying Study - 4 HR IMPRESSION: Normal gastric emptying examination. Reading Location: [place] [id number]
== END | disposition home or self-care (01) ==
LOC: NM 07:53
PROVIDERS: PCP Family Medicine; Referring Provider Nurse Practitioner Acute Care; Visit Provider Nurse Practitioner Acute Care
DX: R63.4 Abnormal weight loss (principal); R10.13 Epigastric pain; R11.0 Nausea; R68.81 Early satiety
CPT/HCPCS: 78264; A9541

== ENCOUNTER → 2025-01-21 | Outpatient (CLI) | payer OTHER, SELFPAY ==
--- NOTE | 2025-01-21 07:44 | MES_ITS ---
Reason For Study Reason For Study: Celiac Artery Compression Syndrome Aorta Proximal abdominal aorta 1.92 x 1.98 cm . Proximal abdominal aorta peak systolic velocity is 99.5 cm/sec . Mid abdominal aorta 1.56 x 1.59 cm . Mix abdominal aorta peak systolic velocity is 88.6 cm/sec . Distal abdominal aorta 1.35 x 1.32 cm . Distal abdominal aorta peak systolic velocity is 103.1 cm/sec . Celiac A - 609.3/135.8 cm Celiac Artery appears tortuous with a measurement of 0.92cm in long axis Celiac A W/INSP - 270.7/83.8 cm/s Celiac A W/EXP - 529.4/142.6 cm/s Hepatic A - 50.6/16.2 cm/s Splenic A - 99.0/31.4 cm/s Splenic Artery appears tortuous. SMA Dereck - 354.1/54.7 cm/s SMA Dereck - W/INSP - 236.6/23.4 cm/s SMA Dereck - W/EXP - 468.0/51.2 cm/s SMA Prox - 235.4/33.3 cm/s SMA Mid - 241.3/27.3 cm/s SMA Dist - 88.6/9.5 cm/s LIZBETH Dereck - 170.0/4.1 cm/s LIZBETH Prox - 97.5/6.7 cm/s. Procedures Mesenteric Artery Duplex for possible MALS. 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 Inferior mesenteric artery patent. Ordering Physician: Ora Gold Referring Physician: Dante De La O Performed By: oJn Campos RVT and Student
== END | disposition home or self-care (01) ==
PROVIDERS: PCP Family Medicine; Referring Provider Physician Assistant; Visit Provider Physician Assistant
DX: I77.4 Celiac artery compression syndrome (principal)
CPT/HCPCS: 93975